=== PATIENT | female | born 1955 | race Caucasian/White ===

== ENCOUNTER 2017-12-21 00:50 | Inpatient (IN) | payer MEDICARE, BC ==
[2017-12-21] MEDS: IPRATROPIUM BROMIDE 0.5 MG/2.5 ML NEBU. NEB (01:13)
[2017-12-21] MEDS: ALBUTEROL SULFATE 2.5 MG/3 ML NEBU. CONT NEB (01:13)
[2017-12-21 01:27] LABS: ADD MAN DIFF? NO
[2017-12-21 01:30] LABS: BASE EXCESS ABG 0 mmol/L (-3-3); HCO3 ABG 24 mmol/L (21-28); PCO2 ABG 38 mmHg (35-46); PH ABG 7.42 (7.35-7.45); PO2 ABG 174 mmHg (65-108); SAT O2 ABG 99 % (92-99)
[2017-12-21 01:31] LABS: BASO # 0.1 x10^3/uL (0.0-0.2); BASO % 2 % (0-3); EOS # 0.3 x10^3/uL (0.0-0.7); EOS % 3 % (0-3); HEMATOCRIT 39.3 % (36.0-47.0); HEMOGLOBIN 13.1 g/dL (12.0-15.5); LYMPH # 2.7 x10^3/uL (1.0-4.8); LYMPH % 30 % (24-48); MEAN CORPUSCULAR HEMOGLOBIN 29 pg (25-35); MEAN CORPUSCULAR HGB CONC 33 g/dL (31-37); MEAN CORPUSCULAR VOLUME 86 fL (79-100); MONO # 1.1 x10^3/uL (0.0-1.1); MONO % 12 % (0-9); NEUT # 4.8 x10^3uL (1.8-7.7); NEUT % 54 % (31-73); PLATELET COUNT 303 x10^3/uL (140-400); RED BLOOD COUNT 4.56 x10^6/uL (3.50-5.40); RED CELL DISTRIBUTION WIDTH 14.2 % (11.5-14.5)
[2017-12-21] MEDS: methylPREDNISolone SOD SUCC PF 125 MG/2 ML VIAL. IV ×2 (01:31→05:48)
[2017-12-21 01:40] LABS: FIO2 ABG 50
[2017-12-21 01:45] LABS: ANION GAP 10 (6-14); BLOOD UREA NITROGEN 32 mg/dL (7-20); BUN/CREATININE RATIO 46 (6-20); CALCIUM 9.2 mg/dL (8.5-10.1); CARBON DIOXIDE 26 mmol/L (21-32); CHLORIDE 102 mmol/L (98-107); CREATININE 0.7 mg/dL (0.6-1.0); GFR 84.5; GLUCOSE 99 mg/dL (70-99); POTASSIUM 4.3 mmol/L (3.5-5.1); SODIUM 138 mmol/L (136-145)
[2017-12-21 01:49] LABS: ALBUMIN 3.7 g/dL (3.4-5.0); ALBUMIN/GLOBULIN RATIO 1.2 (1.0-1.7); ALK PHOS 93 U/L (46-116); ALT (SGPT) 33 U/L (14-59); AST (SGOT) 27 U/L (15-37); TOTAL BILIRUBIN 0.2 mg/dL (0.2-1.0); TOTAL PROTEIN 6.9 g/dL (6.4-8.2)
[2017-12-21 01:51] LABS: LACTIC ACID 0.9 mmol/L (0.4-2.0)
[2017-12-21 01:54] LABS: NT-PRO BNP 63 pg/mL (0-124)
[2017-12-21 01:58] LABS: TROPONINI < 0.017 ng/mL (0.000-0.055)
[2017-12-21] MEDS ORDERED: ONDANSETRON PF 4 MG/2 ML VIAL. IV (02:15)
[2017-12-21 02:58] LABS: INFLUENZA A PATIENT NEGATIVE (NEGATIVE); INFLUENZA B PATIENT NEGATIVE (NEGATIVE); OBC FLU VALID
[2017-12-21] MEDS: IPRATRPIUM/ALBUTEROL 0.5/2.5MG 3 ML NEBU. NEB ×2 (08:22→12:00)
== END 2017-12-21 13:02 | disposition home or self-care (01) | DRG 191 ==
LOC: ER 00:50 → 6 SOUTH 01:30
DX: J44.1 Chronic obstructive pulmonary disease with (acute) exacerbation (principal); J96.10 Chronic respiratory failure, unspecified whether with hypoxia or hypercapnia; Z99.81 Dependence on supplemental oxygen; E03.9 Hypothyroidism, unspecified; Z87.891 Personal history of nicotine dependence
CPT/HCPCS: 36415; 36600; 71045; 80053; 82805; 83605; 83880; 84484; 85025; 87040; 87804; 87804-59; 93005; 94618; 94640; 94644; 94760; J2930; J7613; J7620; J7644

== ENCOUNTER 2018-10-03 06:07 | Emergency (ER) | payer BC, MEDICARE ==
[~2018-10-03] VITALS: Ht 162.6 cm; Wt 65.8 kg
[~2018-10-03 06:07] MED LIST: ALBU2.5V14 NEB; BUDE10.2 IH; FLUO40CA2 PO; LEVO100T5 PO; LEVO25TA55 PO; LEVO500T59 PO; MOME13HF IH; Nicotine TD; OXYC1TAB8 PO; PRED20TA PO; PRED50TA PO; PROAIR HFA8.5 GM IH; TIOT18CA IH; TRAZ-85 PO; WARF2.5T83 PO
--- NOTE | 2018-10-03 06:11 | PHYS DOC ---
Past Medical History Past Medical History: COPD, Other Additional Past Medical Histor: emphysema Past Surgical History: No Surgical History Alcohol Use: None Drug Use: None, Marijuana Adult General HPI HPI Patient is a 63 year old female who presents with dyspnea. Patient is known to have COPD. She uses 3 L of oxygen at home as needed. Today, she became acutely dyspneic. She used her albuterol nebulizers at home but these did not relieve her symptoms so she called 911. The patient has not had a fever or chills. She does describe a mildly worsening cough with sputum production compared to her baseline. No chest pain. No orthopnea or lower extremity edema. Patient states the symptoms are classic for her known COPD Review of Systems Review of Systems Constitutional: Denies fever Eyes: Denies change in visual acuity HENT: Denies nasal congestion Respiratory: as documented above Cardiovascular: No additional information GI: Denies abdominal pain, nausea Musculoskeletal: Denies back pain or joint pain Integument: Denies rash or skin lesions Neurologic: Denies headache All other systems were reviewed and found to be within normal limits, except as documented in this note. Current Medications Current Medications Current Medications Medications (Trade) Dose Ordered Sig/Rebeca Start Time Stop Time Status Last Admin Dose Admin Albuterol Sulfate (Ventolin Neb Soln) 10 mg 1X ONCE 10/03/18 06:30 10/03/18 06:31 DC 10/03/18 06:20 10 MG Albuterol/ Ipratropium (Duoneb) 3 ml 1X ONCE 10/03/18 06:30 10/03/18 06:31 DC 10/03/18 06:20 3 ML Azithromycin (Zithromax) 500 mg 1X ONCE 10/03/18 08:15 10/03/18 08:16 DC 10/03/18 08:26 500 MG Methylprednisolone Sodium Succinate (SOLU-Medrol 125MG VIAL) 125 mg 1X ONCE 10/03/18 06:30 10/03/18 06:31 DC 10/03/18 06:32 125 MG Allergies Allergies Allergies Coded Allergies Type Severity Reaction Last Updated Verified No Known Drug Allergies 09/09/16 No Physical Exam Physical Exam Constitutional: Well developed, well nourished, moderate respiratory distress, non-toxic appearance HENT: Normocephalic, atraumatic, bilateral external ears normal, oropharynx moist Eyes: PERRLA, EOMI, conjunctiva normal Neck: Normal range of motion Cardiovascular:Heart rate regular rhythm, no murmur Lungs & Thorax: prolonged expiratory phase, wheezes and diminished air flow in all goncalves Abdomen: Bowel sounds normal, soft, no tenderness Skin: Warm, dry, no erythema Extremities: No edema Neurologic: Alert and oriented X 3 Psychologic: Affect normal Current Patient Data Vital Signs Vital Signs Date Time Temp Pulse Resp B/P (MAP) Pulse Ox O2 Delivery O2 Flow Rate FiO2 10/03/18 06:41 88 26 113/80 (91) 99 Nasal Cannula 3.0 10/03/18 06:07 97.3 97.3 Lab Values Laboratory Tests Test 10/03/18 06:27 White Blood Count 9.4 x10^3/uL (4.0-11.0) Red Blood Count 4.85 x10^6/uL (3.50-5.40) Hemoglobin 13.6 g/dL (12.0-15.5) Hematocrit 41.0 % (36.0-47.0) Mean Corpuscular Volume 85 fL (79-100) Mean Corpuscular Hemoglobin 28 pg (25-35) Mean Corpuscular Hemoglobin Concent 33 g/dL (31-37) Red Cell Distribution Width 14.2 % (11.5-14.5) Platelet Count 272 x10^3/uL (140-400) Neutrophils (%) (Auto) 58 % (31-73) Lymphocytes (%) (Auto) 29 % (24-48) Monocytes (%) (Auto) 9 % (0-9) Eosinophils (%) (Auto) 3 % (0-3) Basophils (%) (Auto) 1 % (0-3) Neutrophils # (Auto) 5.5 x10^3uL (1.8-7.7) Lymphocytes # (Auto) 2.8 x10^3/uL (1.0-4.8) Monocytes # (Auto) 0.8 x10^3/uL (0.0-1.1) Eosinophils # (Auto) 0.2 x10^3/uL (0.0-0.7) Basophils # (Auto) 0.1 x10^3/uL (0.0-0.2) Sodium Level 137 mmol/L (136-145) Potassium Level 4.1 mmol/L (3.5-5.1) Chloride Level 102 mmol/L (98-107) Carbon Dioxide Level 27 mmol/L (21-32) Anion Gap 8 (6-14) Blood Urea Nitrogen 32 mg/dL (7-20) H Creatinine 0.8 mg/dL (0.6-1.0) Estimated GFR (Cockcroft-Gault) 72.2 Glucose Level 132 mg/dL (70-99) H Calcium Level 9.3 mg/dL (8.5-10.1) Procalcitonin < 0.10 ng/mL (0.00-0.10) Laboratory Tests 10/03/18 06:27 Laboratory Tests 10/03/18 06:27 EKG EKG [] Radiology/Procedures Radiology/Procedures CXR: no acute process Course & Med Decision Making Course & Med Decision Making Pertinent Labs and Imaging studies reviewed. (See chart for details) 06:10: Patient is seen and examined. Significant respiratory distress with increased work of breathing and prolonged expiratory phase. Duoneb followed by hour-long albuterol neb ordered. 07:15: Patient much improved. Sleeping with hour-long neb in progress. Vitals stable. SaO2 97%. Work of breathing resolved. 08:05: Symptoms are completely resolved. The patient has clear lungs. She has no increased work of breathing. Plan is for discharge home. She is placed on prednisone over the next 5 days. She is also placed on azithromycin over the same time. The first dose was given in the ER. Patient is advised to come back to the ER for any new or worsening symptoms. Otherwise, follow up with her primary care doctor. Regine Disclaimer Regine Disclaimer This electronic medical record was generated, in whole or in part, using a voice recognition dictation system. Departure Departure Disposition: HOME, SELF-CARE Condition: GOOD Referrals: JONI GAR (PCP) Scripts Azithromycin (AZITHROMYCIN TABLET) 250 Mg Tablet 250 MG PO DAILY for ANTI-BIOTIC for 4 Days, #4 TAB 0 Refills Prov: SASKIA CASTILLO DO 10/03/18 Prednisone (PREDNISONE) 50 Mg Tablet 1 TAB PO DAILY, #5 TAB Prov: SASKIA CASTILLO DO 10/03/18 SASKIA CASTILLO DO Oct 03, 2018 06:11
[2018-10-03] MEDS ORDERED: IPRATRPIUM/ALBUTEROL 0.5/2.5MG 3 ML NEBU. NEB ONE (06:30)
[2018-10-03] MEDS ORDERED: methylPREDNISolone SOD SUCC PF 125 MG/2 ML VIAL. IV ONE (06:30)
[2018-10-03] MEDS ORDERED: ALBUTEROL SULFATE 2.5 MG/3 ML NEBU. CONT NEB ONE (06:30)
[2018-10-03 06:41] LABS: BASO # 0.1 x10^3/uL (0.0-0.2); BASO % 1 % (0-3); EOS # 0.2 x10^3/uL (0.0-0.7); EOS % 3 % (0-3); HEMOGLOBIN 13.6 g/dL (12.0-15.5); LYMPH # 2.8 x10^3/uL (1.0-4.8); LYMPH % 29 % (24-48); MEAN CORPUSCULAR HEMOGLOBIN 28 pg (25-35); MEAN CORPUSCULAR HGB CONC 33 g/dL (31-37); MEAN CORPUSCULAR VOLUME 85 fL (79-100); MONO # 0.8 x10^3/uL (0.0-1.1); MONO % 9 % (0-9); NEUT # 5.5 x10^3uL (1.8-7.7); NEUT % 58 % (31-73); PLATELET COUNT 272 x10^3/uL (140-400); RED BLOOD COUNT 4.85 x10^6/uL (3.50-5.40); RED CELL DISTRIBUTION WIDTH 14.2 % (11.5-14.5); WHITE BLOOD COUNT 9.4 x10^3/uL (4.0-11.0)
--- NOTE | 2018-10-03 06:48 | RAD ---
Chest radiograph 10/03/2018 6:13 AM INDICATION: Dyspnea, COPD exacerbation COMPARISON: December 21, 2017 TECHNIQUE: Portable upright frontal view of the chest is provided. FINDINGS: The cardiomediastinal silhouette is within normal limits. There are no pleural effusions. There is no pulmonary vascular congestion. There is no pneumothorax. The lungs are clear. No significant osseous abnormality is identified. IMPRESSION: No acute cardiopulmonary process. Electronically signed by: Cheryl Collier MD (10/03/2018 6:45 AM) [facility]
[2018-10-03 06:53] LABS: CALCIUM 9.3 mg/dL (8.5-10.1); CREATININE 0.8 mg/dL (0.6-1.0); GFR 72.2; POTASSIUM 4.1 mmol/L (3.5-5.1)
[2018-10-03] MEDS ORDERED: AZIT250T6 PO (08:07)
[2018-10-03] MEDS ORDERED: PRED50TA PO (08:07)
[2018-10-03 08:11] VITALS: BP 114/69
[2018-10-03] MEDS ORDERED: AZITHROMYCIN 250 MG TABLET. PO ONE (08:15)
== END 2018-10-03 08:20 | disposition home or self-care (01) ==
LOC: ER 06:07
DX: R06.00 Dyspnea, unspecified (principal); R06.2 Wheezing; R05 Cough; J43.9 Emphysema, unspecified
CPT/HCPCS: 36415; 71045; 80048; 84145; 85025; 94644; 96374; 99285; J2930; J7613; J7620; Q0144

== ENCOUNTER 2019-01-06 07:06 | Emergency (ER) | payer MEDICARE, OTHER ==
[~2019-01-06] VITALS: Ht 160 cm; Wt 69.9 kg
[~2019-01-06 07:06] MED LIST changes: +ALBU2.5V8 IH; +AZIT250T6 PO; -PROAIR HFA8.5 GM IH; +TRAZ-118 PO; -TRAZ-85 PO
[2019-01-06] MEDS ORDERED: methylPREDNISolone SOD SUCC PF 125 MG/2 ML VIAL. IV ONE (07:15)
[2019-01-06] MEDS ORDERED: IPRATRPIUM/ALBUTEROL 0.5/2.5MG 3 ML NEBU. NEB ONE ×2 (07:15→09:00)
--- NOTE | 2019-01-06 07:17 | PHYS DOC ---
Past Medical History Past Medical History: COPD, Other Additional Past Medical Histor: emphysema Past Surgical History: No Surgical History Alcohol Use: None Drug Use: Marijuana Adult General Chief Complaint Chief Complaint: SHORTNESS OF BREATH HPI HPI Patient is a 64 year old female who presents to ER today for evaluation of trouble breathing. Patient has history of COPD, was a former smoker, quit smoking about 2 years ago. Patient is on 2 L of oxygen at home as needed. Patient said about 2 weekS ago she was diagnosed with bronchitis, just finished a five-day course of Z-Len and 4 DAYS of prednisone ABOUT weeks ago. She denies any fever, no chest pain. Review of Systems Review of Systems Constitutional: Denies fever or chills [] Eyes: Denies change in visual acuity, redness, or eye pain [] HENT: Denies nasal congestion or sore throat [] Respiratory: POSITIVE FOR cough AND shortness of breath [] Cardiovascular: No additional information not addressed in HPI [] GI: Denies abdominal pain, nausea, vomiting, bloody stools or diarrhea [] : Denies dysuria or hematuria [] Musculoskeletal: Denies back pain or joint pain [] Integument: Denies rash or skin lesions [] Neurologic: Denies headache, focal weakness or sensory changes [] Endocrine: Denies polyuria or polydipsia [] All other systems were reviewed and found to be within normal limits, except as documented in this note. Current Medications Current Medications Current Medications Medications (Trade) Dose Ordered Sig/Rebeca Start Time Stop Time Status Last Admin Dose Admin Albuterol/ Ipratropium (Duoneb) 3 ml 1X ONCE 01/06/19 09:00 01/06/19 09:01 DC 01/06/19 09:09 3 ML Methylprednisolone Sodium Succinate (SOLU-Medrol 125MG VIAL) 125 mg 1X ONCE 01/06/19 07:15 01/06/19 07:21 DC 01/06/19 07:34 125 MG Ondansetron HCl (Zofran) 4 mg 1X ONCE 01/06/19 07:30 01/06/19 07:31 DC 01/06/19 07:34 4 MG Allergies Allergies Allergies Coded Allergies Type Severity Reaction Last Updated Verified No Known Drug Allergies 09/09/16 No Physical Exam Physical Exam Constitutional: Well developed, well nourished, no acute distress, non-toxic appearance. [] HENT: Normocephalic, atraumatic, bilateral external ears normal, oropharynx moist, no oral exudates, nose normal. [] Eyes: PERRLA, EOMI, conjunctiva normal, no discharge. [] Neck: Normal range of motion, no tenderness, supple, no stridor. [] Cardiovascular:Heart rate regular rhythm, no murmur [] Lungs & Thorax: DIFFUSE EXPIRATORY AND INSPIRATORY WHEEZING IN ALL LUNG GOULD, DECREASED AIR MOVEMENT. Abdomen: Bowel sounds normal, soft, no tenderness, no masses, no pulsatile masses. [] Skin: Warm, dry, no erythema, no rash. [] Back: No tenderness, no CVA tenderness. [] Extremities: No tenderness, no cyanosis, no clubbing, ROM intact, no edema. [] Neurologic: Alert and oriented X 3, normal motor function, normal sensory function, no focal deficits noted. [] Psychologic: Affect normal, judgement normal, mood normal. [] Current Patient Data Vital Signs Vital Signs Date Time Temp Pulse Resp B/P (MAP) Pulse Ox O2 Delivery O2 Flow Rate FiO2 01/06/19 09:09 98 Nasal Cannula 2.0 01/06/19 07:43 97.6 115 26 137/78 (97) 97.6 Lab Values Laboratory Tests Test 01/06/19 07:15 White Blood Count 9.9 x10^3/uL (4.0-11.0) Red Blood Count 4.82 x10^6/uL (3.50-5.40) Hemoglobin 13.4 g/dL (12.0-15.5) Hematocrit 40.7 % (36.0-47.0) Mean Corpuscular Volume 85 fL (79-100) Mean Corpuscular Hemoglobin 28 pg (25-35) Mean Corpuscular Hemoglobin Concent 33 g/dL (31-37) Red Cell Distribution Width 15.3 % (11.5-14.5) H Platelet Count 295 x10^3/uL (140-400) Neutrophils (%) (Auto) 65 % (31-73) Lymphocytes (%) (Auto) 23 % (24-48) L Monocytes (%) (Auto) 10 % (0-9) H Eosinophils (%) (Auto) 1 % (0-3) Basophils (%) (Auto) 1 % (0-3) Neutrophils # (Auto) 6.5 x10^3uL (1.8-7.7) Lymphocytes # (Auto) 2.2 x10^3/uL (1.0-4.8) Monocytes # (Auto) 1.0 x10^3/uL (0.0-1.1) Eosinophils # (Auto) 0.1 x10^3/uL (0.0-0.7) Basophils # (Auto) 0.1 x10^3/uL (0.0-0.2) Sodium Level 142 mmol/L (136-145) Potassium Level 4.0 mmol/L (3.5-5.1) Chloride Level 106 mmol/L (98-107) Carbon Dioxide Level 27 mmol/L (21-32) Anion Gap 9 (6-14) Blood Urea Nitrogen 19 mg/dL (7-20) Creatinine 0.7 mg/dL (0.6-1.0) Estimated GFR (Cockcroft-Gault) 84.0 BUN/Creatinine Ratio 27 (6-20) H Glucose Level 107 mg/dL (70-99) H Calcium Level 9.3 mg/dL (8.5-10.1) Total Bilirubin 0.4 mg/dL (0.2-1.0) Aspartate Amino Transferase (AST) 26 U/L (15-37) Alanine Aminotransferase (ALT) 35 U/L (14-59) Alkaline Phosphatase 95 U/L (46-116) Creatine Kinase 119 U/L (26-192) Creatine Kinase MB (Mass) 3.3 ng/mL (0.0-3.6) Creatine Kinase MB Relative Index 2.8 % (0-4) Troponin I Quantitative < 0.017 ng/mL (0.000-0.055) [id number]-Type Natriuretic Peptide 99 pg/mL (0-124) Total Protein 7.4 g/dL (6.4-8.2) Albumin 3.1 g/dL (3.4-5.0) L Albumin/Globulin Ratio 0.7 (1.0-1.7) L Laboratory Tests 01/06/19 07:15 Laboratory Tests 01/06/19 07:15 EKG EKG EKG was read by this physician at 0738, rate of 98 bpm, sinus rhythm, no STEMI. Radiology/Procedures Radiology/Procedures [][facility] [address] [place] [address] IMAGING REPORT Signed PATIENT: SERVANDO PATEL ACCOUNT: [id number] : 1955 LOCATION: ER AGE: 64 SEX: F EXAM STATUS: REG ER ORD. PHYSICIAN: ABHIJEET MUÑOZ DO REASON: SOA PROCEDURE: PORTABLE CHEST 1V PORTABLE CHEST 1V Clinical indications: Shortness of air, PRODUCTIVE COUGH COMPARISON: October 03, 2018. Findings: Calcified granuloma the right lung base is again evident. No acute lung infiltrate or pleural effusion or pulmonary edema or lung mass or pneumothorax is seen. The heart size, pulmonary vasculature, mediastinum and both stephany are unremarkable. Impression: No acute radiographic abnormality is seen. Electronically signed by: Albino Rodgers MD (01/06/2019 7:40 AM) [facility] DICTATED and SIGNED BY: ALBINO RODGERS MD DATE: 01/06/19 0739 Course & Med Decision Making Course & Med Decision Making Pertinent Labs and Imaging studies reviewed. (See chart for details) Patient was given nebulizer treatment in the ER. She felt much better, would like to go home. There is no infiltration on chest xray. Patient has oxygen and neb treatment at home. She will follow up with her doctor this week for reevaluation. Dragon Disclaimer Dragon Disclaimer This electronic medical record was generated, in whole or in part, using a voice recognition dictation system. Departure Departure Impression: Primary Impression: COPD exacerbation Disposition: 01 HOME, SELF-CARE Condition: IMPROVED Referrals: JONI GAR (PCP) follow up with your doctor this week. Patient Instructions: Chronic Obstructive Pulmonary Disease Exacerbation Scripts Prednisone (PREDNISONE) 20 Mg Tablet 40 MG PO DAILY for 5 Days, #10 TAB Prov: ABHIJEET MUÑOZ DO 01/06/19 ABHIJEET MUÑOZ DO Jan 06, 2019 07:17
[2019-01-06] MEDS ORDERED: ONDANSETRON PF 4 MG/2 ML VIAL. IV ONE (07:30)
[2019-01-06 07:43] VITALS: BP 137/78
[2019-01-06 07:43] LABS: CALCIUM 9.3 mg/dL (8.5-10.1); CREATININE 0.7 mg/dL (0.6-1.0)
--- NOTE | 2019-01-06 07:43 | RAD ---
PORTABLE CHEST 1V Clinical indications: Shortness of air, PRODUCTIVE COUGH COMPARISON: October 03, 2018. Findings: Calcified granuloma the right lung base is again evident. No acute lung infiltrate or pleural effusion or pulmonary edema or lung mass or pneumothorax is seen. The heart size, pulmonary vasculature, mediastinum and both stephany are unremarkable. Impression: No acute radiographic abnormality is seen. Electronically signed by: Pedro Rodgers MD (01/06/2019 7:40 AM) [facility]
[2019-01-06 07:49] LABS: ALBUMIN 3.1 g/dL (3.4-5.0); ALBUMIN/GLOBULIN RATIO 0.7 (1.0-1.7); BASO # 0.1 x10^3/uL (0.0-0.2); BASO % 1 % (0-3); EOS # 0.1 x10^3/uL (0.0-0.7); EOS % 1 % (0-3); HEMATOCRIT 40.7 % (36.0-47.0); HEMOGLOBIN 13.4 g/dL (12.0-15.5); LYMPH # 2.2 x10^3/uL (1.0-4.8); LYMPH % 23 % (24-48); MEAN CORPUSCULAR HEMOGLOBIN 28 pg (25-35); MEAN CORPUSCULAR HGB CONC 33 g/dL (31-37); MEAN CORPUSCULAR VOLUME 85 fL (79-100); MONO % 10 % (0-9); NEUT # 6.5 x10^3uL (1.8-7.7); NEUT % 65 % (31-73); PLATELET COUNT 295 x10^3/uL (140-400); RED BLOOD COUNT 4.82 x10^6/uL (3.50-5.40); RED CELL DISTRIBUTION WIDTH 15.3 % (11.5-14.5); TOTAL BILIRUBIN 0.4 mg/dL (0.2-1.0); TOTAL PROTEIN 7.4 g/dL (6.4-8.2); WHITE BLOOD COUNT 9.9 x10^3/uL (4.0-11.0)
[2019-01-06] MEDS ORDERED: PRED20TA PO (09:36)
[2019-01-06 10:04] LABS: BILIRUBIN,URINE NEGATIVE (NEG); CLARITY,URINE CLEAR; COLOR,URINE YELLOW; NITRITE,URINE NEGATIVE (NEG); PH,URINE 5.5; PROTEIN,URINE NEGATIVE (NEG-TRACE); UROBILINOGEN,URINE 0.2 mg/dL (0.2 mg/dL)
[2019-01-06 10:28] LABS: SQUAMOUS EPITHELIAL CELL,UR OCC /LPF
[2019-01-06 10:29] LABS: BACTERIA,URINE 0 /HPF (0-FEW); RBC,URINE 0 /HPF (0-2); WBC,URINE OCC /HPF (0-4)
--- NOTE | 2019-01-06 16:21 | EKG ---
[facility] [address] [place] [address] Test Date: 2019-01-06 Test Time: 07:37:45 Pat Name: SERVANDO PATEL Department: Room: Gender: F [employer] Property: : 1955 Requested By: ABHIJEET MUÑOZ Order Number: [id number] Reading MD: Houston Landry Measurements Intervals [place] Rate: 98 P: 90 MI: 136 QRS: 52 QRSD: 80 T: 87 QT: 332 QTc: 426 Interpretive Statements SINUS RHYTHM Electronically Signed On 01-14-2019 10:44:26 [employer] by Houston Landry
[2019-01-22] MEDS ORDERED: DOXY100T PO (10:32)
[2019-01-22] MEDS ORDERED: PRED50TA PO (10:32)
[2019-01-22] MEDS ORDERED: SERT25TA4 PO (12:32)
== END 2019-01-06 10:29 | disposition home or self-care (01) ==
LOC: ER 07:06
DX: J44.1 Chronic obstructive pulmonary disease with (acute) exacerbation (principal); Z87.891 Personal history of nicotine dependence
CPT/HCPCS: 36415; 71045; 80053; 81001; 82550; 82553; 83880; 84484; 85025; 93005; 94640; 96374; 96375; 99284; J2405; J2930; J7620

== ENCOUNTER 2019-01-19 07:14 | Emergency (ER) | payer MEDICARE, OTHER ==
[~2019-01-19] VITALS: Ht 162.6 cm; Wt 69.9 kg
[2019-01-19] MEDS ORDERED: fentaNYL PF VIAL 100 MCG/2 ML VIAL IV ONE (08:15)
[2019-01-19] MEDS ORDERED: IPRATRPIUM/ALBUTEROL 0.5/2.5MG 3 ML NEBU. NEB ONE (08:15)
[2019-01-19] MEDS ORDERED: ONDANSETRON PF 4 MG/2 ML VIAL. IV ONE (08:15)
[2019-01-19] MEDS ORDERED: methylPREDNISolone SOD SUCC PF 125 MG/2 ML VIAL. IV ONE (08:15)
[2019-01-19] MEDS ORDERED: IV NORMAL SALINE 1000ML BAG 1,000 ML IV ONE (08:15)
--- NOTE | 2019-01-19 08:32 | PHYS DOC ---
Past Medical History Past Medical History: COPD, Hypothyroid Additional Past Medical Histor: emphysema Past Surgical History: No Surgical History Alcohol Use: None Drug Use: None Adult General Chief Complaint Chief Complaint: NAUSEA/VOMITING/DIARRHA HPI HPI 64-year-old female presents to ER for complaints of cold-like symptoms and GI issues. Patient reports on she started having cold-like symptoms with productive cough and then developed abdominal pain with N/V/D. patient reports today she has had 6-7 episodes of vomiting and approximately 5 episodes of diarrhea denying any blood in emesis or stools. She denies fever, chest pain, or shortness of air. Patient reports she is a former smoker and has history of COPD. She reports she has had productive cough with yellowish phlegm. Patient states she has O2 at home which she uses as needed denies increased use in the past several days. Patient reports she has diffuse abdominal pain denies any radiation into lower back. She denies any urinary symptoms. Since has been also has cold-like illness. Review of Systems Review of Systems Constitutional: Denies fever or chills. Reports generalized fatigue Eyes: Denies change in visual acuity, redness, or eye pain [] HENT: Denies nasal congestion or sore throat [] Respiratory: Denies shortness of breath. Reports prod. cough Cardiovascular: Denies CP GI: Denies bloody stools. Reports diffuse abd pain with N/V/D : Denies dysuria or hematuria [] Musculoskeletal: Denies back/neck pain or joint pain [] Integument: Denies rash, swelling or skin lesions [] Neurologic: Denies headache, focal weakness or sensory changes [] Endocrine: Denies polyuria or polydipsia [] All other systems were reviewed and found to be within normal limits, except as documented in this note. Current Medications Current Medications Current Medications Medications (Trade) Dose Ordered Sig/Rebeca Start Time Stop Time Status Last Admin Dose Admin Albuterol/ Ipratropium (Duoneb) 3 ml 1X ONCE 01/19/19 08:15 01/19/19 08:16 DC 01/19/19 08:28 3 ML Fentanyl Citrate (Fentanyl 2ml Vial) 25 mcg 1X ONCE 01/19/19 08:15 01/19/19 08:16 DC 01/19/19 08:56 25 MCG Methylprednisolone Sodium Succinate (SOLU-Medrol 125MG VIAL) 125 mg 1X ONCE 01/19/19 08:15 01/19/19 08:18 DC 01/19/19 08:55 125 MG Ondansetron HCl (Zofran) 4 mg 1X ONCE 01/19/19 08:15 01/19/19 08:16 DC 01/19/19 08:56 4 MG Sodium Chloride 1,000 ml @ 1,000 mls/hr 1X ONCE 01/19/19 08:15 01/19/19 09:14 DC 01/19/19 08:55 1,000 MLS/HR Allergies Allergies Allergies Coded Allergies Type Severity Reaction Last Updated Verified No Known Drug Allergies 09/09/16 No Physical Exam Physical Exam Constitutional: Well developed, well nourished, no acute distress, non-toxic appearance. [] HENT: Normocephalic, atraumatic, bilateral external ears normal, oropharynx moist, no oral exudates, nose normal. [] Eyes: Pupils equal, conjunctiva normal, no discharge. [] Neck: Normal range of motion, no tenderness, supple, no stridor. [] Cardiovascular: Heart rate regular rhythm, no murmur [] Lungs & Thorax: Resp. equal/nonlabored. Coarse bilat. upper lung goncalves- decreased air movement in bases. Abdomen: Bowel sounds normal, soft- no distention or rigidity, diffuse tenderness in all abd- no focal area, no rebound tenderness, no masses, no pulsatile masses. [] Skin: Warm, dry, no erythema, no rash. [] Back: No tenderness, no CVA tenderness. [] Extremities: No tenderness, no cyanosis, no clubbing, ROM intact, no edema. [] Neurologic: Alert and oriented X 3, normal motor function, normal sensory function, no focal deficits noted. [] Psychologic: Affect normal, judgement normal, mood normal. [] Current Patient Data Vital Signs Vital Signs Date Time Temp Pulse Resp B/P (MAP) Pulse Ox O2 Delivery O2 Flow Rate FiO2 01/19/19 08:29 Room Air 01/19/19 07:29 98.1 134 22 114/78 (90) 98 98.1 Lab Values Laboratory Tests Test 01/19/19 08:15 01/19/19 08:30 White Blood Count 5.6 x10^3/uL (4.0-11.0) Red Blood Count 5.25 x10^6/uL (3.50-5.40) Hemoglobin 14.5 g/dL (12.0-15.5) Hematocrit 44.0 % (36.0-47.0) Mean Corpuscular Volume 84 fL (79-100) Mean Corpuscular Hemoglobin 28 pg (25-35) Mean Corpuscular Hemoglobin Concent 33 g/dL (31-37) Red Cell Distribution Width 14.8 % (11.5-14.5) H Platelet Count 250 x10^3/uL (140-400) Neutrophils (%) (Auto) 59 % (31-73) Lymphocytes (%) (Auto) 22 % (24-48) L Monocytes (%) (Auto) 18 % (0-9) H Eosinophils (%) (Auto) 0 % (0-3) Basophils (%) (Auto) 1 % (0-3) Neutrophils # (Auto) 3.3 x10^3uL (1.8-7.7) Lymphocytes # (Auto) 1.2 x10^3/uL (1.0-4.8) Monocytes # (Auto) 1.0 x10^3/uL (0.0-1.1) Eosinophils # (Auto) 0.0 x10^3/uL (0.0-0.7) Basophils # (Auto) 0.0 x10^3/uL (0.0-0.2) Segmented Neutrophils % 54 % (35-66) Band Neutrophils % 5 % (0-9) Lymphocytes % 26 % (24-48) Monocytes % 14 % (0-10) H Basophils % 1 % (0-3) Platelet Estimate Adequate (ADEQUATE) Sodium Level 139 mmol/L (136-145) Potassium Level 3.6 mmol/L (3.5-5.1) Chloride Level 101 mmol/L (98-107) Carbon Dioxide Level 23 mmol/L (21-32) Anion Gap 15 (6-14) H Blood Urea Nitrogen 29 mg/dL (7-20) H Creatinine 1.0 mg/dL (0.6-1.0) Estimated GFR (Cockcroft-Gault) 55.6 BUN/Creatinine Ratio 29 (6-20) H Glucose Level 122 mg/dL (70-99) H Calcium Level 8.5 mg/dL (8.5-10.1) Magnesium Level 1.8 mg/dL (1.8-2.4) Total Bilirubin 0.3 mg/dL (0.2-1.0) Aspartate Amino Transferase (AST) 28 U/L (15-37) Alanine Aminotransferase (ALT) 33 U/L (14-59) Alkaline Phosphatase 86 U/L (46-116) Troponin I Quantitative < 0.017 ng/mL (0.000-0.055) Total Protein 6.9 g/dL (6.4-8.2) Albumin 3.3 g/dL (3.4-5.0) L Albumin/Globulin Ratio 0.9 (1.0-1.7) L Lipase 214 U/L (73-393) Urine Collection Type Unknown Urine Color Straw Urine Clarity Hazy Urine pH 6.0 Urine Specific [place] >=1.030 Urine Protein 100 mg/dL (NEG-TRACE) Urine Glucose (UA) 100 mg/dL (NEG) Urine Ketones (Stick) Trace mg/dL (NEG) Urine Blood Small (NEG) Urine Nitrite Negative (NEG) Urine Bilirubin Small (NEG) Urine Urobilinogen Dipstick 0.2 mg/dL (0.2 mg/dL) Urine Leukocyte Esterase Negative (NEG) Laboratory Tests 01/19/19 08:15 Laboratory Tests 01/19/19 08:15 EKG EKG EKG obtained 01/19/19 at [address] Mueller Sinus rhythm Rate 95 No STEMI Radiology/Procedures Radiology/Procedures PROCEDURE: CHEST PA & LATERAL CHEST PA LATERAL History: N,V,D X4 DAYS. HX OF COPD Comparison: 01/06/2019 portable chest x-ray exam. Findings: The cardiomediastinal silhouette is normal. Pulmonary vasculature is normal. The lungs are clear. No pleural effusion or pneumothorax is seen. There is no acute bone abnormality. Calcified granuloma involves the right lung base. Pulmonary hyperinflation is evident. IMPRESSION: No acute cardiopulmonary process. COPD. Electronically signed by: Kushal Siddiqi MD (01/19/2019 8:57 AM) [facility] DICTATED and SIGNED BY: KUSHAL SIDDIQI MD DATE: 01/19/19 0857 Course & Med Decision Making Course & Med Decision Making Pertinent Labs and Imaging studies reviewed. (See chart for details) 0950: She was evaluated in the ER for cold-like symptoms. Patient reports she had GI issues as well with vomiting and diarrhea episodes. While in ER patient has had no reported episodes of vomiting or diarrhea. At this time patient reports her symptoms have improved following treatments received- stating her abd pain and nausea had subsided. Patient was given dose of IV Solu-Medrol for probable COPD exacerbation and DuoNeb treatment. Patient on reexam does have increased air movement throughout all lung goncalves w/ coarse lung sound improving in bilat upper goncalves. BP 114/75 HR 90 RR 18 O2 sat 95% RA. Discussed test results with pt and her husb. EKG with no acute ST elevation/STEMI and troponin <0.017; WBCs NL at 5.6 LFTs/lipase NL; UA neg. for infection- 100 protein/glucose w/trace of ketones; chest xray neg. for acute finding. Patient reports she has been recently having chest ran for borderline diabetes- blood glucose was 122. Advised patient to have repeat UA with primary care physician for reevaluation on protein and ketones. Discussed plans for home discharge with improved symptoms. Will provide patient with prescription for prednisone to start tomorrow for 4 additional days and doxycycline. Patient to follow-up with primary care physician in 2-3 days for reevaluation sooner with concerns. Pt advised to increase fluid intake and slowly advance diet as tolerated. Discharge instructions were discussed and education provided on s&s to return to ER for. Provide patient with prescriptions for Zofran ODT and Bentyl. Patient is comfortable with home discharge plan as discussed. Patient's was at bedside during discussion. Dragon Disclaimer Dragon Disclaimer This electronic medical record was generated, in whole or in part, using a voice recognition dictation system. Departure Departure Impression: Primary Impression: COPD exacerbation Additional Impression: Vomiting and diarrhea Disposition: 01 HOME, SELF-CARE Condition: STABLE Referrals: JONI GAR (PCP) Patient Instructions: Bronchitis, Chronic Obstructive Pulmonary Disease Exacerbation, Diarrhea, Nausea and Vomiting Additional Instructions: Drink plenty of fluids and slowly advance diet as tolerated. Tylenol and/or ibuprofen as needed for pain and fever control as directed on container. Follow-up with your primary care physician in 2-3 days for reevaluation sooner with any concerns. Scripts Dicyclomine Hcl (DICYCLOMINE HCL) 10 Mg Capsule 1 CAP PO PRN Q6HRS PRN for PAIN, #8 CAP 0 Refills Prov: YOSELIN VERDUZCO APRN 01/19/19 Ondansetron (ONDANSETRON ODT) 4 Mg Tab.rapdis 1 TAB PO PRN Q6-8HRS PRN for NAUSEA, #8 TAB 0 Refills Prov: YOSELIN VERDUZCO APRN 01/19/19 Prednisone (PREDNISONE) 20 Mg Tablet 2 TAB PO DAILY, #8 TAB 0 Refills Start on 01/20/19 Prov: YOSELIN VERDUZCO APRN 01/19/19 Doxycycline Monohydrate (DOXYCYCLINE MONOHYDRATE) 100 Mg Capsule 1 CAP PO BID, #14 CAP Prov: YOSELIN VERDUZCO APRN 01/19/19 Problem Qualifiers YOSELIN VERDUZCO APRN Jan 19, 2019 08:32
[2019-01-19 08:37] LABS: BASO % 1 % (0-3); EOS % 0 % (0-3); HEMOGLOBIN 14.5 g/dL (12.0-15.5); LYMPH # 1.2 x10^3/uL (1.0-4.8); LYMPH % 22 % (24-48); MEAN CORPUSCULAR HEMOGLOBIN 28 pg (25-35); MEAN CORPUSCULAR HGB CONC 33 g/dL (31-37); MEAN CORPUSCULAR VOLUME 84 fL (79-100); MONO % 18 % (0-9); NEUT # 3.3 x10^3uL (1.8-7.7); NEUT % 59 % (31-73); PLATELET COUNT 250 x10^3/uL (140-400); RED BLOOD COUNT 5.25 x10^6/uL (3.50-5.40); RED CELL DISTRIBUTION WIDTH 14.8 % (11.5-14.5); WHITE BLOOD COUNT 5.6 x10^3/uL (4.0-11.0)
[2019-01-19 08:47] LABS: BILIRUBIN,URINE SMALL (NEG); CLARITY,URINE HAZY; COLOR,URINE STRAW
[2019-01-19 08:48] LABS: CALCIUM 8.5 mg/dL (8.5-10.1); GFR 55.6; POTASSIUM 3.6 mmol/L (3.5-5.1)
[2019-01-19 08:48] LABS: NITRITE,URINE NEGATIVE (NEG); PROTEIN,URINE 100 mg/dL (NEG-TRACE); UROBILINOGEN,URINE 0.2 mg/dL (0.2 mg/dL)
[2019-01-19 08:55] LABS: ALBUMIN 3.3 g/dL (3.4-5.0); ALBUMIN/GLOBULIN RATIO 0.9 (1.0-1.7); MAGNESIUM 1.8 mg/dL (1.8-2.4); TOTAL BILIRUBIN 0.3 mg/dL (0.2-1.0); TOTAL PROTEIN 6.9 g/dL (6.4-8.2)
--- NOTE | 2019-01-19 09:00 | RAD ---
CHEST PA LATERAL History: N,V,D X4 DAYS. HX OF COPD Comparison: 01/06/2019 portable chest x-ray exam. Findings: The cardiomediastinal silhouette is normal. Pulmonary vasculature is normal. The lungs are clear. No pleural effusion or pneumothorax is seen. There is no acute bone abnormality. Calcified granuloma involves the right lung base. Pulmonary hyperinflation is evident. IMPRESSION: No acute cardiopulmonary process. COPD. Electronically signed by: Kushal Hill MD (01/19/2019 8:57 AM) [facility]
[2019-01-19 10:00] VITALS: BP 107/74
[2019-01-19 10:01] LABS: % BANDS 5 % (0-9); % BASOS 1 % (0-3); % LYMPHS 26 % (24-48); % MONOS 14 % (0-10); % SEGS 54 % (35-66)
[2019-01-19 10:02] LABS: PLT ESTIMATE ADEQUATE (ADEQUATE)
[2019-01-19] MEDS ORDERED: DICY10CA3 PO (10:03)
[2019-01-19] MEDS ORDERED: DOXY100C14 PO (10:03)
[2019-01-19] MEDS ORDERED: PRED20TA PO (10:03)
[2019-01-19] MEDS ORDERED: ONDA4TAB12 PO (10:03)
--- NOTE | 2019-01-20 07:06 | EKG ---
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
[2019-01-20] MEDS ORDERED: BUDE0.25 NEB (20:16)
[2019-01-20] MEDS ORDERED: ARFO15VI NEB (20:16)
[2019-01-22] MEDS ORDERED: PRED50TA PO (10:32)
[2019-01-22] MEDS ORDERED: DOXY100T PO (10:32)
[2019-01-22] MEDS ORDERED: SERT25TA4 PO (12:32)
--- NOTE | 2019-01-23 07:58 | NUR ---
Late entry made to Medical Record. IV Stop time transcribed from eMAR to IV spreadsheet
== END 2019-01-19 10:25 | disposition home or self-care (01) ==
LOC: ER 07:14
DX: J44.1 Chronic obstructive pulmonary disease with (acute) exacerbation (principal); R11.2 Nausea with vomiting, unspecified; R19.7 Diarrhea, unspecified; E03.9 Hypothyroidism, unspecified; Z87.891 Personal history of nicotine dependence
CPT/HCPCS: 99284; J2405; J2930; J3010; J7030; J7620; 36415; 71046; 80053; 81003; 83690; 83735; 84484; 85007; 85025; 93005; 94640; 96361; 96374; 96375

== ENCOUNTER 2019-01-20 16:08 | Inpatient (IN) | payer MEDICARE, OTHER ==
[~2019-01-20] VITALS: Ht 172.7 cm; Wt 71.9 kg
[~2019-01-20 16:08] MED LIST changes: +DICY10CA3 PO; +DOXY100C14 PO; +ONDA4TAB12 PO
[2019-01-20 16:41] LABS: BASO % 0 % (0-3); EOS % 0 % (0-3); HEMATOCRIT 41.2 % (36.0-47.0); HEMOGLOBIN 13.5 g/dL (12.0-15.5); LYMPH % 13 % (24-48); MEAN CORPUSCULAR HEMOGLOBIN 28 pg (25-35); MEAN CORPUSCULAR HGB CONC 33 g/dL (31-37); MEAN CORPUSCULAR VOLUME 85 fL (79-100); MONO # 0.9 x10^3/uL (0.0-1.1); MONO % 12 % (0-9); NEUT # 5.7 x10^3uL (1.8-7.7); NEUT % 75 % (31-73); PLATELET COUNT 288 x10^3/uL (140-400); RED BLOOD COUNT 4.86 x10^6/uL (3.50-5.40); RED CELL DISTRIBUTION WIDTH 15.2 % (11.5-14.5); WHITE BLOOD COUNT 7.6 x10^3/uL (4.0-11.0)
[2019-01-20] MEDS ORDERED: IPRATRPIUM/ALBUTEROL 0.5/2.5MG 3 ML NEBU. NEB ONE (16:45)
[2019-01-20] MEDS ORDERED: methylPREDNISolone SOD SUCC PF 125 MG/2 ML VIAL. IV ONE (16:45)
[2019-01-20 16:56] LABS: GFR 55.6; POTASSIUM 4.2 mmol/L (3.5-5.1)
[2019-01-20 16:59] LABS: BASE EXCESS COOX -1 mmol/L (-3-3); HCO3 COOX 23 mmol/L (21-28); METHEMOGLOBIN 0.3 % (0.0-1.9); OXYHEMOGLOBIN 96.4 %; PCO2 COOX 38 mmHg (35-46); PO2 COOX 97 mmHg (65-108); SAT O2 COOX 97 % (92-99)
[2019-01-20] MEDS ORDERED: ALBUTEROL SULFATE 2.5 MG/3 ML NEBU. CONT NEB ONE (17:00)
[2019-01-20 17:01] LABS: ALBUMIN 3.4 g/dL (3.4-5.0); ALBUMIN/GLOBULIN RATIO 0.8 (1.0-1.7); MAGNESIUM 1.8 mg/dL (1.8-2.4); TOTAL BILIRUBIN 0.2 mg/dL (0.2-1.0); TOTAL PROTEIN 7.5 g/dL (6.4-8.2)
--- NOTE | 2019-01-20 17:30 | NUR ---
The patient, SERVANDO PATEL, 64 y/o, F admitted by DAMARIS GARCIA MD, was given written information regarding hospital policies, unit procedures and contact persons. Valuables were checked and left with patient.
--- NOTE | 2019-01-20 17:38 | RAD ---
EXAM: Chest, single view. HISTORY: Shortness of breath. COMPARISON: 01/19/2019 FINDINGS: A frontal view of the chest is obtained. There is no infiltrate, pleural effusion or pneumothorax. The heart is normal in size. There is a calcified granuloma within the right lower lobe. There is emphysema. IMPRESSION: Emphysema. No acute pulmonary finding. Electronically signed by: Marlena Dong MD (01/20/2019 5:35 PM) [facility]
--- NOTE | 2019-01-20 17:59 | PHYS DOC ---
Past Medical History Past Medical History: COPD, Hypothyroid Additional Past Medical Histor: emphysema Past Surgical History: No Surgical History Alcohol Use: None Drug Use: None Adult General Chief Complaint Chief Complaint: SHORTNESS OF BREATH HPI HPI Patient is a 64 year old female with history of stage IV emphysema, COPD who presents with shortness of breath that began a week ago. Patient denies any fever. Patient states she was seen in the ED yesterday for the same complaints, was given a breathing treatment and sent home. She states symptoms have continued. She is on oxygen 2 L at home chronically. Review of Systems Review of Systems Constitutional: Denies fever or chills [] Eyes: Denies change in visual acuity, redness, or eye pain [] HENT: Denies nasal congestion or sore throat [] Respiratory: Reports cough and shortness of breath Cardiovascular: No additional information not addressed in HPI [] GI: Denies abdominal pain, nausea, vomiting, bloody stools or diarrhea [] : Denies dysuria or hematuria [] Musculoskeletal: Denies back pain or joint pain [] Integument: Denies rash or skin lesions [] Neurologic: Denies headache, focal weakness or sensory changes [] All other systems were reviewed and found to be within normal limits, except as documented in this note. Current Medications Current Medications Current Medications Medications (Trade) Dose Ordered Sig/[facility] Start Time Stop Time Status Last Admin Dose Admin Albuterol Sulfate (Ventolin Neb Soln) 10 mg 1X ONCE 01/20/19 17:00 01/20/19 17:01 DC 01/20/19 17:04 10 MG Albuterol/ Ipratropium (Duoneb) 3 ml 1X ONCE 01/20/19 16:45 01/20/19 16:46 DC 01/20/19 16:37 3 ML Methylprednisolone Sodium Succinate (SOLU-Medrol 125MG VIAL) 125 mg 1X ONCE 01/20/19 16:45 01/20/19 16:46 DC 01/20/19 16:45 125 MG Allergies Allergies Allergies Coded Allergies Type Severity Reaction Last Updated Verified No Known Drug Allergies 09/09/16 No Physical Exam Physical Exam Constitutional: Well developed, well nourished, no acute distress, non-toxic appearance. [] HENT: Normocephalic, atraumatic, bilateral external ears normal, oropharynx moist, no oral exudates, nose normal. [] Eyes: PERRLA, EOMI, conjunctiva normal, no discharge. [] Neck: Normal range of motion, no tenderness, supple, no stridor. [] Cardiovascular:Heart rate regular rhythm, no murmur [] Lungs & Thorax: Patient is short of breath on arrival to the ED. She is wheezing throughout especially on posterior lung bases. Abdomen: Bowel sounds normal, soft, no tenderness, no masses, no pulsatile masses. [] Skin: Warm, dry, no erythema, no rash. [] Back: No tenderness, no CVA tenderness. [] Extremities: No tenderness, no cyanosis, no clubbing, ROM intact, no edema. [] Neurologic: Alert and oriented X 3, normal motor function, normal sensory function, no focal deficits noted. [] Psychologic: Affect normal, judgement normal, mood normal. [] Current Patient Data Vital Signs Vital Signs Date Time Temp Pulse Resp B/P (MAP) Pulse Ox O2 Delivery O2 Flow Rate FiO2 01/20/19 17:08 Nasal Cannula 2.5 01/20/19 16:55 98.2 125 21 122/81 (95) 95 98.2 Lab Values Laboratory Tests Test 01/20/19 16:25 01/20/19 16:33 White Blood Count 7.6 x10^3/uL (4.0-11.0) Red Blood Count 4.86 x10^6/uL (3.50-5.40) Hemoglobin 13.5 g/dL (12.0-15.5) Hematocrit 41.2 % (36.0-47.0) Mean Corpuscular Volume 85 fL (79-100) Mean Corpuscular Hemoglobin 28 pg (25-35) Mean Corpuscular Hemoglobin Concent 33 g/dL (31-37) Red Cell Distribution Width 15.2 % (11.5-14.5) H Platelet Count 288 x10^3/uL (140-400) Neutrophils (%) (Auto) 75 % (31-73) H Lymphocytes (%) (Auto) 13 % (24-48) L Monocytes (%) (Auto) 12 % (0-9) H Eosinophils (%) (Auto) 0 % (0-3) Basophils (%) (Auto) 0 % (0-3) Neutrophils # (Auto) 5.7 x10^3uL (1.8-7.7) Lymphocytes # (Auto) 1.0 x10^3/uL (1.0-4.8) Monocytes # (Auto) 0.9 x10^3/uL (0.0-1.1) Eosinophils # (Auto) 0.0 x10^3/uL (0.0-0.7) Basophils # (Auto) 0.0 x10^3/uL (0.0-0.2) Sodium Level 144 mmol/L (136-145) Potassium Level 4.2 mmol/L (3.5-5.1) Chloride Level 106 mmol/L (98-107) Carbon Dioxide Level 22 mmol/L (21-32) Anion Gap 16 (6-14) H Blood Urea Nitrogen 31 mg/dL (7-20) H Creatinine 1.0 mg/dL (0.6-1.0) Estimated GFR (Cockcroft-Gault) 55.6 BUN/Creatinine Ratio 31 (6-20) H Glucose Level 134 mg/dL (70-99) H Calcium Level 9.0 mg/dL (8.5-10.1) Magnesium Level 1.8 mg/dL (1.8-2.4) Total Bilirubin 0.2 mg/dL (0.2-1.0) Aspartate Amino Transferase (AST) 23 U/L (15-37) Alanine Aminotransferase (ALT) 33 U/L (14-59) Alkaline Phosphatase 79 U/L (46-116) Creatine Kinase 149 U/L (26-192) Creatine Kinase MB (Mass) 5.1 ng/mL (0.0-3.6) H Creatine Kinase MB Relative Index 3.4 % (0-4) Troponin I Quantitative < 0.017 ng/mL (0.000-0.055) RF-Szh-Q-Type Natriuretic Peptide 125 pg/mL (0-124) H Total Protein 7.5 g/dL (6.4-8.2) Albumin 3.4 g/dL (3.4-5.0) Albumin/Globulin Ratio 0.8 (1.0-1.7) L O2 Saturation 97 % (92-99) Arterial Blood pH 7.40 (7.35-7.45) Arterial Blood pCO2 at Patient Temp 38 mmHg (35-46) Arterial Blood pO2 at Patient Temp 97 mmHg (65-108) Arterial Blood HCO3 23 mmol/L (21-28) Arterial Blood Base Excess -1 mmol/L (-3-3) Oxyhemoglobin 96.4 % Methemoglobin 0.3 % (0.0-1.9) Carbon Monoxide, Quantitative 0.3 % (0.0-1.9) FiO2 30% nc Laboratory Tests 01/20/19 16:25 Laboratory Tests 01/20/19 16:25 EKG EKG [] Radiology/Procedures Radiology/Procedures [] Course & Med Decision Making Course & Med Decision Making Pertinent Labs and Imaging studies reviewed. (See chart for details) This is a 64-year-old female patient presenting to the ED today with shortness of breath that has been going on for week. Chest x-ray is negative for any acute findings, noted for emphysema. Labs are negative. Patient was given a DuoNeb treatment, has continued to have shortness of breath. She was given 1 hr breathing treatment which is still running. She was also given Solu-Medrol. She' ll be admitted. Consulted with Dr. franklin who accepted patient for admission Dragon Disclaimer Dragon Disclaimer This electronic medical record was generated, in whole or in part, using a voice recognition dictation system. Departure Departure Impression: Primary Impression: COPD exacerbation Additional Impression: Shortness of breath Disposition: ADMITTED INPATIENT Condition: STABLE Referrals: JONI GAR (PCP) Problem Qualifiers KI CORTEZ APRN Jan 20, 2019 17:59
[2019-01-20] MEDS ORDERED: MORPHINE SULFATE 2 MG/ML VIAL. IV PRN (18:15)
[2019-01-20] MEDS ORDERED: ACETAMINOPHEN 325 MG TABLET. PO PRN (18:15)
[2019-01-20 19:00] VITALS: BP 131/92
[2019-01-20] MEDS ORDERED: BUDE0.25 NEB (20:16)
[2019-01-20] MEDS ORDERED: ARFO15VI NEB (20:16)
[2019-01-20] MEDS: IPRATRPIUM/ALBUTEROL 0.5/2.5MG 3 ML NEBU. NEB SCH (20:24)
[2019-01-20] MEDS: methylPREDNISolone SOD SUCC PF 40 MG/ML VIAL. IV SCH (20:59)
[2019-01-20 22:49] VITALS: BP 112/71
--- NOTE | 2019-01-20 23:09 | NUR ---
The patient expressed thought of suicide on 01/19/19. Suicide Risk Assessment was completed and reviewed by the nursing outbound supervisor.
[2019-01-20] MEDS ORDERED: traZODone 50 MG TABLET. PO ONE (23:15)
[2019-01-21 02:56] VITALS: BP 103/56
[2019-01-21 03:08] LABS: BASO % 0 % (0-3); EOS % 0 % (0-3); HEMATOCRIT 37.2 % (36.0-47.0); HEMOGLOBIN 12.1 g/dL (12.0-15.5); LYMPH # 0.7 x10^3/uL (1.0-4.8); LYMPH % 10 % (24-48); MEAN CORPUSCULAR HEMOGLOBIN 27 pg (25-35); MEAN CORPUSCULAR HGB CONC 32 g/dL (31-37); MEAN CORPUSCULAR VOLUME 84 fL (79-100); MONO # 0.4 x10^3/uL (0.0-1.1); MONO % 6 % (0-9); NEUT # 5.5 x10^3uL (1.8-7.7); NEUT % 84 % (31-73); PLATELET COUNT 243 x10^3/uL (140-400); RED BLOOD COUNT 4.43 x10^6/uL (3.50-5.40); RED CELL DISTRIBUTION WIDTH 14.6 % (11.5-14.5); WHITE BLOOD COUNT 6.5 x10^3/uL (4.0-11.0)
[2019-01-21 03:30] LABS: CALCIUM 8.9 mg/dL (8.5-10.1); CREATININE 0.9 mg/dL (0.6-1.0); GFR 62.8; POTASSIUM 3.8 mmol/L (3.5-5.1)
[2019-01-21 07:00] VITALS: BP 113/69
[2019-01-21] MEDS: methylPREDNISolone SOD SUCC PF 40 MG/ML VIAL. IV SCH ×2 (08:01→20:54)
[2019-01-21] MEDS: IPRATRPIUM/ALBUTEROL 0.5/2.5MG 3 ML NEBU. NEB SCH ×4 (08:20→19:31)
--- NOTE | 2019-01-21 09:43 | EKG ---
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
--- NOTE | 2019-01-21 10:12 | PDOC ---
Provider Note Provider Note Pt seen.H&P dictated.#[id number] DAMARIS GARCIA MD Jan 21, 2019 10:12
[2019-01-21] MEDS ORDERED: ZOLPIDEM 5 MG TABLET. PO PRN (10:15)
[2019-01-21] MEDS ORDERED: DICYCLOMINE HCL 10 MG CAPSULE PO PRN (10:15)
[2019-01-21] MEDS ORDERED: ALBUTEROL SULFATE 2.5 MG/3 ML NEBU. NEB PRN (10:30)
[2019-01-21 11:00] VITALS: BP 103/65
[2019-01-21] MEDS: ENOXAPARIN 40 MG/0.4 ML SYRINGE. SQ SCH (11:00)
[2019-01-21] MEDS: DOXYCYCLINE HYCLATE 100 MG TABLET PO SCH ×2 (11:00→20:53)
[2019-01-21] MEDS: LEVOTHYROXINE 100 MCG TABLET PO SCH (11:00)
[2019-01-21] MEDS: BUDESONIDE 0.5 MG/2 ML NEBU. NEB SCH ×2 (11:50→19:31)
--- NOTE | 2019-01-21 13:30 | HP ---
ADMIT DATE: 01/20/2019 LOCATION: 512. REASON FOR ADMISSION TO THE HOSPITAL: COPD with oxygen exacerbation, failure of outpatient treatment. HISTORY OF PRESENT ILLNESS: The patient is a 64-year-old female who has history of COPD, has a nebulizer at home, oxygen at home. She came to the Emergency Room day before yesterday and was given medications, was treated in the ER, discharged home and she came back again with more short of breath and wheezing and was admitted to the hospital. Chest x-ray was COPD, no infiltrates. Laboratory data was unremarkable. She was given Solu-Medrol, DuoNeb and was admitted for inpatient treatment. PAST MEDICAL HISTORY: COPD, hypothyroidism, emphysema. PAST SURGICAL HISTORY: No major surgeries. ALLERGIES: No known drug allergies. Personal History: smoked for 30 yrs 2 packs ,quite 2 yrs ago. MEDICATIONS AT HOME: The patient is on albuterol inhaler, Zofran for nausea, prednisone was given recently in the ER, nebulizer as a DuoNeb at home, Brovana twice a day, budesonide twice a day, dicyclomine 10 mg q.6 h., levothyroxine 100 mcg daily, Dulera twice a day ,Spiriva 1 daily. She is on home oxygen 2.5 liters and also she has a breathing machine at home. REVIEW OF SYMPTOMS: PULMONARY: Cough, no sputum. No fever. GASTROINTESTINAL: No nausea. Rest of the 14-system was reviewed and negative. FAMILY HISTORY: Positive for COPD and hypertension. PHYSICAL EXAMINATION: GENERAL: The patient is slightly wheezing. VITAL SIGNS: At the time of admission show a temperature 98, pulse 125, respirations 20, blood pressure 122/81, 95% on room air. HEENT: Head is atraumatic. Pupils equal. Oral cavity: Slight posterior pharyngeal postnasal drainage. NECK: Supple. Thyroid not enlarged. JVD not elevated. CHEST: Symmetrical, COPD pattern. CARDIOVASCULAR: S1, S2. LUNGS: Diminished breath sounds and wheezing in the posterior lungs bilateral. ABDOMEN: Soft, no mass palpable. EXTERNAL GENITALIA: No Quintero. RECTAL: Deferred. EXTREMITIES: No calf tenderness, no edema. Pulses 1+. NEUROLOGIC: Moving all extremities. No focal deficits noted. LABORATORY DATA: Shows a white count of 7, hemoglobin 13, platelets 588. Electrolytes show sodium 144, potassium 4.2, chloride 106, bicarbonate 22, anion gap 16, BUN 31, creatinine 1.0, glucose 134. LFTs normal. CPK negative. Blood gas; pH 7.40, pCO2 of 38, pO2 of 97, bicarbonate 22, 97% on 30% oxygen. Chest x-ray shows emphysema, no acute lung infiltrates. FINAL IMPRESSION: 1. Chronic obstructive pulmonary disease with acute exacerbation. 2. Chronic obstructive pulmonary disease, on home oxygen 2.5 liters. 3. Failure of outpatient treatment. 4. Hypothyroidism. 5.Ex smoker PLAN: At this time, admit to hospital. Given Solu-Medrol 125 mg, Solu-Medrol 40 mg q.12 h., DuoNeb 4 times daily plus p.r.n. We will add doxycycline 100 mg twice daily and we will see how the patient's condition improves in the next 24-48 hours.Pt up to date on vaccinations flue and Pneumovax.She does not smoke now. DAMARIS GARCIA MD DR: ISMAEL/lela JOB#: [id number] / [id number] ALONDRA
[2019-01-21] MEDS: SERTRALINE 25 MG TABLET. PO SCH (14:08)
[2019-01-21] MEDS: FAMOTIDINE 20 MG TABLET. PO SCH ×2 (14:08→20:54)
--- NOTE | 2019-01-21 14:09 | CONS ---
DATE OF CONSULTATION: ATTENDING PHYSICIAN: Dr. Tee. REASON FOR CONSULTATION: Dyspnea. HISTORY OF PRESENT ILLNESS: The patient is a 64-year-old with history of COPD, suspect severe. She smoked for 40 years. She quit 2 years ago. She uses oxygen on a p.r.n. basis. The patient states her home concentrator has not been working well either. She was brought into the hospital with increased shortness of breath. She has a mild cough. No chest pain, no fever, no chills, no headaches, no nausea or vomiting, no diarrhea. Chest x-ray did not reveal any acute infiltrates. There is a calcified granuloma in the right lower lobe. She also states she has been lately depressed and has been anxious. PAST MEDICAL HISTORY: Significant for COPD, could be severe; history of hypothyroidism. PAST SURGICAL HISTORY: No recent major surgery. ALLERGIES: None. MEDICATIONS: Reviewed, as listed in the MRAD, including bronchodilators, DVT prophylaxis with Lovenox and IV Solu-Medrol. REVIEW OF SYSTEMS: Twelve-point system obtained. Pertinent positives discussed in my history of present illness, otherwise noncontributory. All systems that were negative were reviewed as well. SOCIAL HISTORY: Smoked for 40+ years before quitting 2 years ago. FAMILY HISTORY: Noncontributory to lungs. PHYSICAL EXAMINATION: VITAL SIGNS: Stable, afebrile, pulse ox 97% on 2.5 liters. NECK: Supple. LUNGS: Clear. CARDIOVASCULAR: Regular rate. ABDOMEN: Soft, nontender. EXTREMITIES: With no pitting edema. LABORATORY DATA: Reviewed. White cell count 6.5, hemoglobin 12.1. ABGs with a pH of 7.40, pCO2 of 30 and a pO2 of 97 on 30% FiO2. IMPRESSION: 1. Acute hypoxic respiratory failure secondary to acute exacerbation of chronic obstructive pulmonary disease. 2. The patient with suspected severe chronic obstructive pulmonary disease. She smoked for 40+ years. 3. No acute infiltrates on a chest x-ray. RECOMMENDATIONS: 1. Continue with present bronchodilators. 2. Steroids with taper. 3. No need for antibiotics. 4. PFTs as an outpatient. 5. Wean her off oxygen. May need a 6-minute walk test at discharge. 6. Clinically improved, possible discharge in the next 24-48 hours. JOSAFAT BOOTH MD DR: OLEGARIO/lela JOB#: [id number] / [id number]
--- NOTE | 2019-01-21 14:43 | NUR ---
SW following pt for anticipated dc needs. Chart reviewed. Pt lives at home with family and on oxygen. No discharge recommendations noted at this time. Will continue to follow.
[2019-01-21 15:00] VITALS: BP 112/72
[2019-01-21 19:00] VITALS: BP_SYST 114; BP_SYST 174; BP_DIAS 72
[2019-01-21] MEDS: LACTOBACILLUS RHAMNOSUS GG 1 CAPSULE. PO SCH (20:54)
[2019-01-21] MEDS ORDERED: NON FORMULARY ITEM (Budesonide 1 VIAL) NEB SCH (21:00)
[2019-01-21] MEDS ORDERED: FAMOTIDINE 20 MG TABLET. PO SCH (21:00)
[2019-01-21] MEDS ORDERED: NON FORMULARY ITEM (Arformoterol Tartrate (Brovana) 1 VIAL) NEB SCH (21:00)
[2019-01-21 23:00] VITALS: BP 116/65
[2019-01-22 03:00] VITALS: BP 110/74
[2019-01-22] MEDS: LEVOTHYROXINE 100 MCG TABLET PO SCH (05:30)
[2019-01-22 07:00] VITALS: BP 117/72
[2019-01-22] MEDS: IPRATRPIUM/ALBUTEROL 0.5/2.5MG 3 ML NEBU. NEB SCH ×2 (07:30→11:44)
[2019-01-22] MEDS: BUDESONIDE 0.5 MG/2 ML NEBU. NEB SCH (07:30)
[2019-01-22] MEDS: methylPREDNISolone SOD SUCC PF 40 MG/ML VIAL. IV SCH (08:58)
[2019-01-22] MEDS: SERTRALINE 25 MG TABLET. PO SCH (08:58)
[2019-01-22] MEDS: FAMOTIDINE 20 MG TABLET. PO SCH (08:58)
[2019-01-22] MEDS: LACTOBACILLUS RHAMNOSUS GG 1 CAPSULE. PO SCH (08:58)
[2019-01-22] MEDS: DOXYCYCLINE HYCLATE 100 MG TABLET PO SCH (08:59)
[2019-01-22] MEDS ORDERED: SERTRALINE 25 MG TABLET. PO SCH (09:00)
[2019-01-22] MEDS ORDERED: NON FORMULARY ITEM (Tiotropium Bromide (Spiriva) 1 CAP) IH SCH (09:00)
[2019-01-22] MEDS ORDERED: NON FORMULARY ITEM (Mometasone/Formoterol (Dulera 200 Mcg/5 Mcg Inhaler) 1 PUFF) IH SCH (09:00)
--- NOTE | 2019-01-22 10:29 | PDOC ---
PROGRESS NOTES Subjective Subjective pt want to go home Objective Objective Vital Signs Date Time Temp Pulse Resp B/P (MAP) Pulse Ox O2 Delivery O2 Flow Rate FiO2 01/22/19 07:36 96 Room Air 2.5 01/22/19 07:00 98.4 92 20 117/72 (87) 98.4 Intake and Output 01/22/19 06:59 Intake Total 120 ml Balance 120 ml Intake Oral 120 ml # Voids 5 Physical Exam Abdomen: Normal bowel sounds, Soft Heart: Regular rate, Normal S1 Extremities: No clubbing General: Alert, Oriented X3 Lungs: Other (mild wheezing) MUSCULOSKELETAL: No joint tenderness, No swelling Neuro: Normal speech Psych/Mental Status: Mental status NL Skin: No breakdown Diagnosis Problem List Problems Medical Problems: (1) COPD exacerbation Status: Acute Assessment Assessment Problems Medical Problems: (1) COPD exacerbation Status: Acute FINAL IMPRESSION: 1. Chronic obstructive pulmonary disease with acute exacerbation. 2. Chronic obstructive pulmonary disease, on home oxygen 2.5 liters. 3. Failure of outpatient treatment. 4. Hypothyroidism. PLAN: d/c home today doxycycline po bid x 7days po prednisone 50 mg x 5 days 6 mts walk, ?home oxygen. labs ok cxr -ve. At this time, admit to hospital. Given Solu-Medrol 125 mg, Solu-Medrol 40 mg q.12 h., DuoNeb 4 times daily plus p.r.n. We will add doxycycline 100 mg twice daily and we will see how the patient's condition improves in the next 24-48 hours. Plan Plan of Care Problems Medical Problems: (1) COPD exacerbation Status: Acute Comment Review of Relevant I have reviewed the following items sandee (where applicable) has been applied. Medications Current Medications Albuterol Sulfate (Ventolin Neb Soln) 2.5 mg PRN Q6HRS PRN NEB SHORTNESS OF BREATH; Start 01/21/19 at 10:30 Albuterol/ Ipratropium (Duoneb) 3 ml RTQID NEB Last administered on 01/22/19at 07:30; Start 01/21/19 at 12:00 Budesonide (Pulmicort) 0.5 mg RTBID NEB Last administered on 01/22/19at 07:30; Start 01/21/19 at 12:00 Doxycycline Hyclate (Vibra-Tab) 100 mg BID PO Last administered on 01/22/19at 08 :59; Start 01/21/19 at 11:00 Enoxaparin Sodium (Lovenox 40mg Syringe) 40 mg Q24H SQ Last administered on 10/30at 11:00; Start 01/21/19 at 11:00 Famotidine (Pepcid) 20 mg BID PO Last administered on 01/22/19at 08:58; Start at 13:45 Famotidine (Pepcid) 20 mg BID PO ; Start 01/21/19 at 21:00; Stop 01/21/19 at 21: 00; Status DC Lactobacillus Rhamnosus (Culturelle) 1 cap BID PO Last administered on 08:58; Start 01/21/19 at 21:00 Levothyroxine Sodium (Synthroid) 100 mcg DAILY07 PO Last administered on at 05:30; Start 01/21/19 at 11:00 Non-Formulary Medication (Arformoterol Tartrate (Brovana)) 1 vial BID NEB ; Start 01/21/19 at 21:00; Status UNV Non-Formulary Medication (Budesonide ) 1 vial BID NEB ; Start 01/21/19 at 21:00 ; Status UNV Non-Formulary Medication (Mometasone/ Formoterol (Dulera 200 Mcg/5 Mcg Inhaler) ) 1 puff DAILY IH ; Start 01/22/19 at 09:00; Status UNV Non-Formulary Medication (Tiotropium [place] (Spiriva)) 1 cap DAILY IH ; Start 01/22/19 at 09:00; Status UNV Sertraline HCl (Zoloft) 25 mg DAILY PO Last administered on 01/22/19at 08:58; Start 01/21/19 at 13:45 Sertraline HCl (Zoloft) 25 mg DAILY PO ; Start 01/22/19 at 09:00; Stop 01/22/19 at 09:00; Status DC Vitals/I & O Vital Sign - Last 24 Hours 01/21/19 01/21/19 01/21/19 01/21/19 11:00 11:51 15:00 16:26 Temp 98.0 99.0 98.0 99.0 Pulse 91 103 Resp 18 18 B/P (MAP) 103/65 (78) 112/72 (85) Pulse Ox 97 96 98 O2 Delivery Nasal Cannula Nasal Cannula Nasal Cannula Nasal Cannula O2 Flow Rate 2.5 2.5 2.5 2.5 01/21/19 01/21/19 01/21/19 01/21/19 19:00 19:31 20:18 23:00 Temp 97.9 97.9 Pulse 90 Resp 18 B/P (MAP) 174/72 (106) Pulse Ox 97 98 O2 Delivery Nasal Cannula Nasal Cannula Nasal Cannula O2 Flow Rate 2.5 2.5 2.5 01/22/19 01/22/19 01/22/19 01/22/19 03:00 07:00 07:32 07:36 Temp 97.4 98.4 97.4 98.4 Pulse 82 92 Resp 17 20 B/P (MAP) 110/74 (86) 117/72 (87) Pulse Ox 95 98 96 O2 Delivery Nasal Cannula Nasal Cannula Nasal Cannula Room Air O2 Flow Rate 2.5 2.5 2.5 2.5 Intake and Output 01/21/19 01/21/19 01/22/19 14:59 22:59 06:59 Intake Total 0 ml 120 ml Balance 0 ml 120 ml DAMARIS GARCIA MD Jan 22, 2019 10:29
[2019-01-22] MEDS ORDERED: DOXY100T PO (10:32)
[2019-01-22] MEDS ORDERED: PRED50TA PO (10:32)
[2019-01-22 11:00] VITALS: BP 122/72
[2019-01-22] MEDS: ENOXAPARIN 40 MG/0.4 ML SYRINGE. SQ SCH (11:00)
--- NOTE | 2019-01-22 11:34 | PDOC ---
PULMONARY PROGRESS NOTES Subjective feels better Vitals Vital Signs Date Time Temp Pulse Resp B/P (MAP) Pulse Ox O2 Delivery O2 Flow Rate FiO2 01/22/19 07:50 Nasal Cannula 2.5 01/22/19 07:36 96 01/22/19 07:00 98.4 92 20 117/72 (87) 98.4 General: Alert, No acute distress Lungs: Clear Cardiovascular: S1, S2 Abdomen: Soft Neuro Exam: Alert Extremities: No Edema Labs Laboratory Tests Test 01/20/19 16:25 01/20/19 16:33 01/21/19 02:35 White Blood Count 7.6 x10^3/uL (4.0-11.0) 6.5 x10^3/uL (4.0-11.0) Red Blood Count 4.86 x10^6/uL (3.50-5.40) 4.43 x10^6/uL (3.50-5.40) Hemoglobin 13.5 g/dL (12.0-15.5) 12.1 g/dL (12.0-15.5) Hematocrit 41.2 % (36.0-47.0) 37.2 % (36.0-47.0) Mean Corpuscular Volume 85 fL (79-100) 84 fL (79-100) Mean Corpuscular Hemoglobin 28 pg (25-35) 27 pg (25-35) Mean Corpuscular Hemoglobin Concent 33 g/dL (31-37) 32 g/dL (31-37) Red Cell Distribution Width 15.2 % (11.5-14.5) 14.6 % (11.5-14.5) Platelet Count 288 x10^3/uL (140-400) 243 x10^3/uL (140-400) Neutrophils (%) (Auto) 75 % (31-73) 84 % (31-73) Lymphocytes (%) (Auto) 13 % (24-48) 10 % (24-48) Monocytes (%) (Auto) 12 % (0-9) 6 % (0-9) Eosinophils (%) (Auto) 0 % (0-3) 0 % (0-3) Basophils (%) (Auto) 0 % (0-3) 0 % (0-3) Neutrophils # (Auto) 5.7 x10^3uL (1.8-7.7) 5.5 x10^3uL (1.8-7.7) Lymphocytes # (Auto) 1.0 x10^3/uL (1.0-4.8) 0.7 x10^3/uL (1.0-4.8) Monocytes # (Auto) 0.9 x10^3/uL (0.0-1.1) 0.4 x10^3/uL (0.0-1.1) Eosinophils # (Auto) 0.0 x10^3/uL (0.0-0.7) 0.0 x10^3/uL (0.0-0.7) Basophils # (Auto) 0.0 x10^3/uL (0.0-0.2) 0.0 x10^3/uL (0.0-0.2) Sodium Level 144 mmol/L (136-145) 144 mmol/L (136-145) Potassium Level 4.2 mmol/L (3.5-5.1) 3.8 mmol/L (3.5-5.1) Chloride Level 106 mmol/L (98-107) 106 mmol/L (98-107) Carbon Dioxide Level 22 mmol/L (21-32) 24 mmol/L (21-32) Anion Gap 16 (6-14) 14 (6-14) Blood Urea Nitrogen 31 mg/dL (7-20) 29 mg/dL (7-20) Creatinine 1.0 mg/dL (0.6-1.0) 0.9 mg/dL (0.6-1.0) Estimated GFR (Cockcroft-Gault) 55.6 62.8 BUN/Creatinine Ratio 31 (6-20) Glucose Level 134 mg/dL (70-99) 132 mg/dL (70-99) Calcium Level 9.0 mg/dL (8.5-10.1) 8.9 mg/dL (8.5-10.1) Magnesium Level 1.8 mg/dL (1.8-2.4) Total Bilirubin 0.2 mg/dL (0.2-1.0) Aspartate Amino Transf (AST/SGOT) 23 U/L (15-37) Alanine Aminotransferase (ALT/SGPT) 33 U/L (14-59) Alkaline Phosphatase 79 U/L (46-116) Creatine Kinase 149 U/L (26-192) Creatine Kinase MB (Mass) 5.1 ng/mL (0.0-3.6) Creatine Kinase MB Relative Index 3.4 % (0-4) Troponin I Quantitative < 0.017 ng/mL (0.000-0.055) KF-Kuk-I-Type Natriuretic Peptide 125 pg/mL (0-124) Total Protein 7.5 g/dL (6.4-8.2) Albumin 3.4 g/dL (3.4-5.0) Albumin/Globulin Ratio 0.8 (1.0-1.7) O2 Saturation 97 % (92-99) Arterial Blood pH 7.40 (7.35-7.45) Arterial Blood pCO2 at Patient Temp 38 mmHg (35-46) Arterial Blood pO2 at Patient Temp 97 mmHg (65-108) Arterial Blood HCO3 23 mmol/L (21-28) Arterial Blood Base Excess -1 mmol/L (-3-3) Oxyhemoglobin 96.4 % Methemoglobin 0.3 % (0.0-1.9) Carbon Monoxide, Quantitative 0.3 % (0.0-1.9) FiO2 30% nc Medications Active Scripts Medications Dose Route/Sig Max Daily Dose Days Date Category Prednisone 50 Mg Tablet 1 Tab PO DAILY 01/22/19 Rx Doxycycline Hyclate 100 Mg Tablet 100 Mg PO BID 7 01/22/19 Rx Budesonide 0.25 Mg/2 Ml Ampul.neb 1 Vial NEB BID 01/20/19 Reported Brovana (Arformoterol Tartrate) 15 Mcg/2 Ml Vial.neb 1 Vial NEB BID 01/20/19 Reported Dicyclomine Hcl 10 Mg Capsule 1 Cap PO PRN Q6HRS PRN 01/19/19 Rx Ondansetron Odt (Ondansetron) 4 Mg Tab.rapdis 1 Tab PO PRN Q6-8HRS PRN 01/19/19 Rx Spiriva (Tiotropium [place]) 18 Mcg Cap.w.dev 1 Cap IH DAILY 12/21/17 Rx Levothyroxine Sodium 100 Mcg Tablet 1 Tab PO DAILY 12/21/17 Reported Dulera 200 Mcg/5 Mcg Inhaler (Mometasone/Formoterol) 13 Gm Hfa.aer.ad 1 Puff IH DAILY 09/09/16 Reported Proair Hfa Inhaler (Albuterol Sulfate) 8.5 Gm Hfa.aer.ad 2 Puff IH PRN Q4-6HRS 06/29/14 Reported Albuterol Sulfate Conc Neb Soln (Albuterol Sulfate) 2.5 Mg/0.5 Ml Vial.neb 1 Vial NEB Q6HRS 06/29/14 Reported Impression . 1. Acute hypoxic respiratory failure secondary to acute exacerbation of chronic obstructive pulmonary disease. 2. The patient with suspected severe chronic obstructive pulmonary disease. She smoked for 40+ years. 3. No acute infiltrates on a chest x-ray. Plan . 1. Continue with present bronchodilators. 2. Steroids with taper. 3. No need for antibiotics. 4. PFTs as an outpatient. 5. 6-minute walk test at discharge. 6. Clinically improved, discharge today JOSAFAT BOOTH MD Jan 22, 2019 11:34
[2019-01-22] MEDS ORDERED: SERT25TA4 PO (12:32)
--- NOTE | 2019-01-22 13:48 | NUR ---
Discharge Note: SERVANDO PATEL Discharge instructions and discharge home medications reviewed with Patient and a copy given. All questions have been answered and understanding verbalized. The following instructions and handouts were given: discharge instructions, new presriptions, education, and follow up recommendation. Discontinued lines and drains: Peripheral IV discontinued intact. Patient discharged to Home or Self Care with Spouse via Wheelchair off unit by IRRIGATIONIST.
--- NOTE | 2019-01-22 16:44 | PDOC ---
Provider Note Provider Note Discharge summary dictated.#[id number] DAMARIS GARCIA MD Jan 22, 2019 16:44
--- NOTE | 2019-01-22 22:32 | DS ---
DATE OF DISCHARGE: 01/22/2019 REASON FOR ADMISSION TO THE HOSPITAL: COPD with acute exacerbation. CONSULTATIONS: Dr. Daniel. PROCEDURES: None. HOSPITAL COURSE: The patient is a 64-year-old female. The patient has a history of chronic COPD. She was in the ER, the night before was sent home with prednisone, did not get better, came back again, was admitted to the hospital, was given Solu-Medrol IV, DuoNeb and started on doxycycline. The patient's condition improved in the next 24-48 hours, seen by Pulmonology and she was discharged. Chest x-ray was negative. Laboratory data was unremarkable. Blood gas was within reasonable. The patient had a 6-minute walk, did not show any desaturation. The patient stopped smoking 2 years back. She is up-to-date on flu and pneumonia shots. FINAL DIAGNOSES: Chronic obstructive pulmonary disease with acute exacerbation and anxiety. Follow up in the office with Dr. Valadez. DAMARIS GARCIA MD DR: ISMAEL/nts JOB#: [id number] / [id number]
== END 2019-01-22 13:49 | disposition home health service (06) | DRG 189 ==
LOC: ER 16:08 → 5 NORTH 17:25
PROVIDERS: ADMIT Internal Medicine; ATTEND Internal Medicine
DX: J96.01 Acute respiratory failure with hypoxia (principal); J44.1 Chronic obstructive pulmonary disease with (acute) exacerbation; Z82.5 Family history of asthma and other chronic lower respiratory diseases; E03.9 Hypothyroidism, unspecified; Z87.891 Personal history of nicotine dependence; Z99.81 Dependence on supplemental oxygen; F41.9 Anxiety disorder, unspecified; Z23 Encounter for immunization; Z82.49 Family history of ischemic heart disease and other diseases of the circulatory system
CPT/HCPCS: 36415; 36600; 71045; 71046; 80048; 80053; 81003; 82553; 82805; 83690; 83735; 83880; 84484; 85007; 85025; 93005; 94618; 94640; 94644; 94760; 96374; J1650; J2920; J2930; J7613; J7620; J7626; 99285-25

== ENCOUNTER 2020-02-05 14:12 | Observation (INO) | payer MEDICARE, OTHER ==
[~2020-02-05] VITALS: Ht 161.3 cm; Wt 69.1 kg
[2020-02-05] VITALS (10 sets, daily range): BP systolic 96–122; BP diastolic 53–82
[~2020-02-05 14:12] MED LIST changes: +ARFO15VI NEB; +BUDE0.25 NEB; +DOXY100T PO; +SERT25TA4 PO
[2020-02-05] MEDS ORDERED: DIPH,PERTUSS(ACELL),TET VAC/PF 0.5 ML SYRINGE. VAX IM ONE (14:45)
[2020-02-05] MEDS ORDERED: ONDANSETRON PF 4 MG/2 ML VIAL. IV ONE (14:45)
[2020-02-05] MEDS ORDERED: IV NORMAL SALINE 500ML BAG 500 ML IV ONE (14:45)
[2020-02-05] MEDS ORDERED: MORPHINE SULFATE 4 MG/ML VIAL. IV ONE (14:45)
--- NOTE | 2020-02-05 14:53 | PHYS DOC ---
Past Medical History Past Medical History: COPD, Hypothyroid, Other Additional Past Medical Histor: emphysema Past Surgical History: No Surgical History Smoking Status: Former Smoker Alcohol Use: None Drug Use: None Adult General Chief Complaint Chief Complaint: ANIMAL BITE HPI HPI Patient is a 65 year old female, who presents to the emergency department with complaints of a dog bite to her left ankle. Patient states that her pit bull terrier attacked her this afternoon. She states that the animal is up-to-date on all of his vaccinations. She denies any decreased movement or sensation in the affected extremity. Patient states that her leg is starting to have a shooting tingling sensation. She currently rates the pain a 4 out of 10 on the pain scale, states the pain is worse with movement and touch. Patient states that her last tetanus shot was greater than 5 years ago. Patient also reports that she has a history of COPD and was prescribed azithromycin by her primary care doctor yesterday for a cough that she has had for 3 months. She denies any fever, body aches, chills, nausea, vomiting, diarrhea, increased shortness of breath, chest pain, palpitations, headache or dizziness. She denies any known exposure to COVID-19, or recent travel. Review of Systems Review of Systems Complete ROS is negative unless otherwise noted in HPI. Current Medications Current Medications Current Medications Medications (Trade) Dose Ordered Sig/Rebeca Start Time Stop Time Status Last Admin Dose Admin Cefazolin Sodium/ Dextrose 50 ml @ 100 mls/hr 1X ONCE 02/05/20 15:15 02/05/20 15:44 Diphtheria/ Tetanus/Acell Pertussis (ADACEL TDap SYRINGE) 0.5 ml ONCE ONCE 02/05/20 14:45 02/05/20 14:50 DC 02/05/20 15:00 0.5 ML Fentanyl Citrate (Fentanyl 2ml Vial) 50 mcg PRN Q5MIN PRN 02/05/20 15:15 02/06/20 15:14 Hydromorphone HCl (Dilaudid) 0.5 mg PRN Q10MIN PRN 02/05/20 15:15 02/06/20 15:14 Lidocaine HCl (Xylocaine-Mpf 1% 2ml Vial) 2 ml PRN 1X PRN 02/05/20 15:15 02/06/20 15:14 Morphine Sulfate (Morphine Sulfate) 1 mg PRN Q10MIN PRN 02/05/20 15:15 02/06/20 15:14 Ondansetron HCl (Zofran) 4 mg PRN Q6HRS PRN 02/05/20 15:15 02/06/20 15:14 Prochlorperazine Edisylate (Compazine) 5 mg PACU PRN PRN 02/05/20 15:15 02/06/20 15:14 Ringer's Solution 1,000 ml @ 30 mls/hr Q24H 02/05/20 15:09 02/06/20 03:08 Sodium Chloride 500 ml @ 500 mls/hr 1X ONCE 02/05/20 14:45 02/05/20 15:44 02/05/20 14:59 500 MLS/HR Allergies Allergies Allergies Coded Allergies Type Severity Reaction Last Updated Verified No Known Drug Allergies 09/09/16 No Physical Exam Physical Exam See Above Constitutional: Well developed, well nourished, anxious, non-toxic appearance. [] HENT: Normocephalic, atraumatic, bilateral external ears normal, nose normal. [] Eyes: PERRLA, EOMI, conjunctiva normal, no discharge. [] Neck: Normal range of motion, no stridor. [] Cardiovascular:Heart rate regular rhythm Lungs & Thorax: Respirations even and unlabored, no retractions, no respiratory distress Skin: Warm, dry; 8 cm irregularly shaped deep laceration to medial LLE without active bleeding; 3 cm curved laceration noted to lateral LLE without active bleeding; Multiple <0.5 cm diameter puncture wounds noted to LLE without active bleeding. Extremities: LLE: lower leg TTP without crepitus or obvious deformity, 2+ pedal and posterior tibial pulses, full extension and flexion of left ankle, sensation intact, no clubbing Neurologic: Alert and oriented X 3, no focal deficits noted. [] Psychologic: Affect normal, judgement normal, mood normal. [] Current Patient Data Vital Signs Vital Signs Date Time Temp Pulse Resp B/P (MAP) Pulse Ox O2 Delivery O2 Flow Rate FiO2 02/05/20 14:58 20 97 Room Air 02/05/20 14:18 98.1 141 114/85 (95) 98.1 EKG EKG [] Radiology/Procedures Radiology/Procedures PROCEDURE: ANKLE LEFT 3V Examination: TIBIA FIBULA LEFT, ANKLE LEFT 3V History: Dog bite to the left lower extremity Comparison/Correlation: None Findings: 3 images of the left ankle and 2 images of the left tibia and fibula were obtained. Soft tissue gas is present circumferentially about the distal tibial shaft level with findings of laceration injury. Ankle joint mortise is adequate. Knee joint is unremarkable on the frontal and lateral projections provided. No fracture or bone destruction. No radiopaque foreign body. Impression: Soft tissue lacerations about the distal tibial level corresponding to reported dog bite history.[] Course & Med Decision Making Course & Med Decision Making Pertinent Labs and Imaging studies reviewed. (See chart for details) 1445- Spoke with Dr. Ng and advised of need for surgical debridement and repair. He will come evaluate patient in the ER before scheduling procedure. 1500- Dr. Ng at bedside to evaluate patient. 1520-spoke with Dr. Tee who is the admitting physician, and care was assumed following discussion of patient, will admit for observation to the med/surg floor. Patient's vital signs stable. Patient remains afebrile, appears nontoxic, respirations even and unlabored. Patient's case and plan of care also discussed with Dr. Zazueta [] Dragon Disclaimer Dragon Disclaimer This electronic medical record was generated, in whole or in part, using a voice recognition dictation system. Departure Departure Impression: Primary Impression: Dog bite of multiple sites of left lower extremity Additional Impressions: Open wound of left lower leg due to dog bite Need for DTaP vaccination Disposition: ADMITTED INPATIENT Admitting Physician: Nay SALDAÑA Vinaya Condition: STABLE Referrals: JONI GAR (PCP) Problem Qualifiers Primary Impression: Dog bite of multiple sites of left lower extremity Encounter type: initial encounter Qualified Codes: S81.852A - Open bite, left lower leg, initial encounter; W54.0XXA - Bitten by dog, initial encounter MOISE ULLOA APRN Feb 05, 2020 14:52
[2020-02-05] MEDS ORDERED: IV RINGERS,LACTATED 1000ML 1,000 ML IV SCH (15:09)
[2020-02-05] MEDS ORDERED: LIDOCAINE 1% PF 2 ML VIAL. ID PRN (15:15)
[2020-02-05] MEDS ORDERED: HYDROmorphone 2 MG/ML VIAL IV PRN (15:15)
[2020-02-05] MEDS ORDERED: PROCHLORPERAZINE 10 MG/2 ML VIAL. IV PRN (15:15)
[2020-02-05] MEDS ORDERED: ONDANSETRON PF 4 MG/2 ML VIAL. IV PRN ×2 (15:15→15:30)
[2020-02-05] MEDS ORDERED: fentaNYL PF VIAL 100 MCG/2 ML VIAL IV PRN ×2 (15:15)
[2020-02-05] MEDS ORDERED: MORPHINE SULFATE 2 MG/ML VIAL. IV PRN (15:15)
--- NOTE | 2020-02-05 15:20 | PDOC2 ---
CONSULT Date of Consult Date of Consult DATE: 02/05/20 TIME: 15:19 History of Present Illness Reason for Visit: The patient is a 65 year old female who reported to the ER after sustaining a dog bite injury to her left lower leg. This happened approximately 2 hours ago and she notes associated pain. Past Medical History Past Medical History COPD Past Surgical History Past Surgical History Denies Social History Quit Current Medications Current Medications Current Medications Sodium Chloride 500 ml @ 500 mls/hr 1X ONCE IV Last administered on 02/05/20at 14:59; Start 02/05/20 at 14:45; Stop 02/05/20 at 15:44 Diphtheria/ Tetanus/Acell Pertussis (ADACEL TDap SYRINGE) 0.5 ml ONCE ONCE VAX IM Last administered on 02/05/20at 15:00; Start 02/05/20 at 14:45; Stop 02/05/20 at 14:50; Status DC Morphine Sulfate (Morphine Sulfate) 4 mg 1X ONCE IV Last administered on 02/05/20at 14:58; Start 02/05/20 at 14:45; Stop 02/05/20 at 14:50; Status DC Ondansetron HCl (Zofran) 4 mg 1X ONCE IV Last administered on 02/05/20at 14:57; Start 02/05/20 at 14:45; Stop 02/05/20 at 14:50; Status DC Ondansetron HCl (Zofran) 4 mg PRN Q6HRS PRN IV NAUSEA/VOMITING; Start 02/05/20 at 15:15; Stop 02/06/20 at 15:14 Fentanyl Citrate (Fentanyl 2ml Vial) 25 mcg PRN Q5MIN PRN IV MILD PAIN 1-3; Start 02/05/20 at 15:15; Stop 02/06/20 at 15:14 Fentanyl Citrate (Fentanyl 2ml Vial) 50 mcg PRN Q5MIN PRN IV MODERATE TO SEVERE PAIN; Start 02/05/20 at 15:15; Stop 02/06/20 at 15:14 Morphine Sulfate (Morphine Sulfate) 1 mg PRN Q10MIN PRN IV SEVERE PAIN 7-10; Start 02/05/20 at 15:15; Stop 02/06/20 at 15:14 Ringer's Solution 1,000 ml @ 30 mls/hr Q24H IV ; Start 02/05/20 at 15:09; Stop 02/06/20 at 03:08 Lidocaine HCl (Xylocaine-Mpf 1% 2ml Vial) 2 ml PRN 1X PRN ID PRIOR TO IV START; Start 02/05/20 at 15:15; Stop 02/06/20 at 15:14 Hydromorphone HCl (Dilaudid) 0.5 mg PRN Q10MIN PRN IV SEV PAIN, Second choice; Start 02/05/20 at 15:15; Stop 02/06/20 at 15:14 Prochlorperazine Edisylate (Compazine) 5 mg PACU PRN PRN IV NAUSEA, MRX1; Start 02/05/20 at 15:15; Stop 02/06/20 at 15:14 Cefazolin Sodium/ Dextrose 50 ml @ 100 mls/hr 1X ONCE IV ; Start 02/05/20 at 15:15; Stop 02/05/20 at 15:44 Active Scripts Active Sertraline Hcl 25 Mg Tablet 25 Mg PO DAILY 30 Days Prednisone 50 Mg Tablet 1 Tab PO DAILY Doxycycline Hyclate 100 Mg Tablet 100 Mg PO BID 7 Days Dicyclomine Hcl 10 Mg Capsule 1 Cap PO PRN Q6HRS PRN Ondansetron Odt (Ondansetron) 4 Mg Tab.rapdis 1 Tab PO PRN Q6-8HRS PRN Spiriva (Tiotropium Braddock) 18 Mcg Cap.w.dev 1 Cap IH DAILY Reported Budesonide 0.25 Mg/2 Ml Ampul.neb 1 Vial NEB BID Brovana (Arformoterol Tartrate) 15 Mcg/2 Ml Vial.neb 1 Vial NEB BID Levothyroxine Sodium 100 Mcg Tablet 1 Tab PO DAILY Dulera 200 Mcg/5 Mcg Inhaler (Mometasone/Formoterol) 13 Gm Hfa.aer.ad 1 Puff IH DAILY Proair Hfa Inhaler (Albuterol Sulfate) 8.5 Gm Hfa.aer.ad 2 Puff IH PRN Q4-6HRS Albuterol Sulfate Conc Neb Soln (Albuterol Sulfate) 2.5 Mg/0.5 Ml Vial.neb 1 Vial NEB Q6HRS Allergies Allergies: Coded Allergies: No Known Drug Allergies (Unverified , 09/09/16) ROS General: No: Chills, Night Sweats, Fatigue, Malaise, Appetite, Other PSYCHOLOGICAL ROS: No: Anxiety, Behavioral Disorder, Concentration difficultie, Decreased libido, Depression, Disorientation, Hallucinations, Hostility, Irritablity, Memory difficulties, Mood Swings, Obsessive thoughts, Physical abuse, Sexual abuse, Sleep disturbances, Suicidal ideation, Other Eyes: No Blurry vision, No Decreased vision, No Double vision, No Dry eyes, No Excessive tearing, No Eye Pain, No Itchy Eyes, No Loss of vision, No Photoph obia, No Scotomata, No Uses contacts, No Uses glasses, No Other Respiratory: YES: Cough (chronic) Cardiovascular: No Chest Pain, No Palpitations, No Orthopnea, No Paroxysmal Noc. Dyspnea, No Edema, No Lt Headedness, No Other Gastrointestinal: No Nausea, No Vomiting, No Abdominal Pain, No Diarrhea, No Constipation, No Melena, No Hematochezia, No Other Genitourinary: No Dysuria, No Frequency, No Incontinence, No Hematuria, No Retention, No Discharge, No Urgency, No Pain, No Flank Pain, No Other, No , No , No , No , No , No , No Musculoskeletal: No Gait Disturbance, No Joint Pain, No Joint Stiffness, No Joint Swelling, No Muscle Pain, No Muscular Weakness, No Pain In:, No Swelling In:, No Other Neurological: No Behavorial Changes, No Bowel/Bladder ControlChng, No Confusion, No Dizziness, No Gait Disturbance, No Headaches, No Impaired Coord/balance, No Memory Loss, No Numbness/Tingling, No Seizures, No Speech Problems, No Tremors, No Visual Changes, No Weakness, No Other Skin: No Dry Skin, No Eczema, No Hair Changes, No Lumps, No Mole Changes, No Mottling, No Nail Changes, No Pruritus, No Rash, No Skin Lesion Changes, No Other, No Acne Physical Exam General: Alert, Oriented X3, Cooperative HEENT: Atraumatic Lungs: Clear to auscultation Heart: Regular rate Abdomen: Soft Extremities: Other (left lower leg with medial irregular curvilinear laceration, lateral puncture wounds, to depth of deep subcutaneous tissue, no active bleeding, distal pulses intact) Vitals VITALS Vital Signs Date Time Temp Pulse Resp B/P (MAP) Pulse Ox O2 Delivery O2 Flow Rate FiO2 02/05/20 14:58 20 97 Room Air 02/05/20 14:18 98.1 141 114/85 (95) 98.1 Assessment/Plan Assessment/Plan L lower leg dog bite, plan to OR for washout, debridement. HERMANN GARCIA MD Feb 05, 2020 15:20
[2020-02-05] MEDS ORDERED: DEXAMETHASONE SOD PHOS 4 MG/ML VIAL ONE (15:22)
[2020-02-05] MEDS ORDERED: FAMOTIDINE 20 MG/2 ML VIAL ONE (15:22)
[2020-02-05] MEDS ORDERED: ONDANSETRON PF 4 MG/2 ML VIAL. ONE (15:22)
[2020-02-05] MEDS ORDERED: PROPOFOL 20 ML IV ONE (15:22)
[2020-02-05] MEDS ORDERED: fentaNYL PF VIAL 100 MCG/2 ML VIAL ONE (15:22)
[2020-02-05] MEDS ORDERED: LIDOCAINE 2% PF 5 ML VIAL. ONE (15:23)
--- NOTE | 2020-02-05 15:27 | RAD ---
Examination: TIBIA FIBULA LEFT, ANKLE LEFT 3V History: Dog bite to the left lower extremity Comparison/Correlation: None Findings: 3 images of the left ankle and 2 images of the left tibia and fibula were obtained. Soft tissue gas is present circumferentially about the distal tibial shaft level with findings of laceration injury. Ankle joint mortise is adequate. Knee joint is unremarkable on the frontal and lateral projections provided. No fracture or bone destruction. No radiopaque foreign body. Impression: Soft tissue lacerations about the distal tibial level corresponding to reported dog bite history. Electronically signed by: Kushal Hill MD (02/05/2020 3:24 PM) [id number]
[2020-02-05] MEDS ORDERED: MORPHINE SULFATE 4 MG/ML VIAL. IV PRN (15:30)
[2020-02-05] MEDS ORDERED: IV NORMAL SALINE 1000ML BAG 1,000 ML IV ONE (15:30)
[2020-02-05 15:34] LABS: BASO # 0.1 x10^3/uL (0.0-0.2); BASO % 1 % (0-3); EOS # 0.1 x10^3/uL (0.0-0.7); EOS % 1 % (0-3); HEMOGLOBIN 14.1 g/dL (12.0-15.5); LYMPH # 1.8 x10^3/uL (1.0-4.8); LYMPH % 18 % (24-48); MEAN CORPUSCULAR HEMOGLOBIN 27 pg (25-35); MEAN CORPUSCULAR HGB CONC 33 g/dL (31-37); MEAN CORPUSCULAR VOLUME 82 fL (79-100); MONO # 0.8 x10^3/uL (0.0-1.1); MONO % 8 % (0-9); NEUT # 7.5 x10^3/uL (1.8-7.7); NEUT % 72 % (31-73); PLATELET COUNT 343 x10^3/uL (140-400); RED BLOOD COUNT 5.25 x10^6/uL (3.50-5.40); RED CELL DISTRIBUTION WIDTH 14.3 % (11.5-14.5); WHITE BLOOD COUNT 10.3 x10^3/uL (4.0-11.0)
[2020-02-05 15:43] LABS: CALCIUM 9.7 mg/dL (8.5-10.1); CREATININE 0.8 mg/dL (0.6-1.0); GFR 71.8; POTASSIUM 4.2 mmol/L (3.5-5.1)
[2020-02-05] MEDS ORDERED: LIDOCAINE 1%/EPI 1:100,000 20 ML VIAL. ONE (15:44)
[2020-02-05 15:49] LABS: ALBUMIN 3.5 g/dL (3.4-5.0); ALBUMIN/GLOBULIN RATIO 0.8 (1.0-1.7); TOTAL BILIRUBIN 0.3 mg/dL (0.2-1.0); TOTAL PROTEIN 7.7 g/dL (6.4-8.2)
[2020-02-05] MEDS ORDERED: SUCCINYLCHOLINE 200 MG/10 ML VIAL. ONE (15:49)
[2020-02-05] MEDS ORDERED: ePHEDrine PF IN SALINE 50 MG/10 ML SYRINGE. IV ONE (16:27)
[2020-02-05] MEDS ORDERED: METOCLOPRAMIDE HCL 10 MG/2 ML VIAL. ONE (16:29)
[2020-02-05] MEDS ORDERED: NEOMY/BACITR/POLYMYXIN OINT PACKET. TP ONE ×8 (16:43→16:47)
[2020-02-05] MEDS ORDERED: DESFLURANE 61 TO 120 MINUTES IH ONE (16:50)
[2020-02-05] MEDS ORDERED: HYDROcodone/APAP 5/325MG 1 TAB TABLET PO PRN ×2 (17:00→17:15)
--- NOTE | 2020-02-05 17:00 | PDOC4 ---
Operative Note Operative Note Operative Note: Preoperative Diagnosis: Left lower extremity dog bite Postoperative Diagnosis: Same Procedure: Debridement, washout, loose closure of left lower extremity laceration (debridement of skin, less than 9 cm2) Surgeon: Hernandez Anesthesia: General EBL: 10 mL Specimen: None Drains: None Complications: None Indication: The patient is a 65-year-old female reported to the emergency department after sustaining a bite to the distal aspect of her left lower leg. On examination there is a complex wound with several puncture holes. The plan is for operative debridement, washout and loose closure. The risks of surgery were discussed with the patient which include bleeding, infection, pain, scar tissue, anesthetic risk, potential need for additional surgery procedure. She understands and would like to proceed. Description: The patient was taken to the operating room and placed supine on the operating table. General anesthesia was performed. The left lower leg was prepped with Betadine and draped in a standard surgical manner. Inspection showed a curved irregular laceration of the skin extending into the deep subcutaneous tissue. There was no tendon or muscle damage. There was no significant active bleeding or evidence of a foreign body. Laterally there were 2 separate puncture holes that extended well into the deep subcutaneous tissue. The medial wound was washed out thoroughly with sterile saline. Some of the subcutaneous tissue was approximated with interrupted 3-0 Vicryl. The skin was loosely closed with a few sutures of 4-0 nylon. Areas were left open to allow for some drainage. Laterally some of the devitalized skin was sharply debrided. The total skin debridement was less than 9 cm. Both puncture wounds were thoroughly washed out with sterile saline and left open to drain. The wounds were dressed with antibiotic ointment and sterile gauze. A Kerlix dressing was then applied. The patient tolerated the procedure well and was sent to recovery room in stable condition. At the end of the case all counts were correct. HERMANN GARCIA MD Feb 05, 2020 17:00
[2020-02-05] MEDS ORDERED: LEVO100T5 PO ×2 (18:22)
[2020-02-05] MEDS ORDERED: PARO30TA3 PO (18:22)
[2020-02-05] MEDS ORDERED: LEVO112T4 PO ×3 (18:22)
[2020-02-05] MEDS ORDERED: VANCOMYCIN 1.5 GM in IV NORMAL SALINE 500ML BAG 500 ML IV ONE (20:15)
[2020-02-05] MEDS ORDERED: IPRATRPIUM/ALBUTEROL 0.5/2.5MG 3 ML NEBU. NEB PRN (20:15)
[2020-02-05] MEDS ORDERED: VANCOMYCIN PER PHARMACY MC PRN (20:30)
[2020-02-05] MEDS ORDERED: ALBUTEROL SULFATE 2.5 MG/3 ML NEBU. NEB SCH (22:00)
[2020-02-06] MEDS: PIPERACILLIN/TAZOBACTAM 3.375 GM in IV NORMAL SALINE 50ML 50 ML IV SCH ×2 (00:45→06:06)
--- NOTE | 2020-02-06 01:29 | NUR ---
Pharmacy Vancomycin Dosing Note S:Consulted to monitor and dose vancomycin started 02/05/20. O:SERVANDO PATEL is a 65 year old F with DOG BITE . Height: 5 feet, 3.5 inches Weight: 69.1 kg [place] Body Weight: 53.55 Adjusted Body Weight: 59.73 Dosing Weight: Actual Other Antibiotics: ZOSYN 3.375 GM Q6H LABS: Last BUN: 22 Last Creatinine: 0.8 Creatinine Clearance: 52 mL/min Last WBC: 10.3 Last Procalcitonin: Tmax (past 24 hours): Microbiology: I/O: Drug Levels: Last level: on at Last dose given 02/05/20 at 2130 Vancomycin Dosing: Loading Dose: 1500 mg x1 Dosing Weight: Actual Target Trough: 10-20 A: Based on: WT AND CRCL P: 1. Begin Vancomycin 1000 mg IV q18h 2. Follow up Trough level on 02/07/20 at 0930 3. Pharmacy will continue to monitor, follow and adjust therapy as needed. HILARIA FITZPATRICK RPH, 02/06/20 0129 Signed: 02/06/20 at 0129 by HILARIA FITZPATRICK RPH PHA
[2020-02-06] MEDS ORDERED: ALBUTEROL SULFATE 2.5 MG/3 ML NEBU. NEB PRN (01:30)
[2020-02-06 03:43] VITALS: BP 136/77
[2020-02-06 07:00] VITALS: BP 112/66
[2020-02-06] MEDS ORDERED: LEVOTHYROXINE 112 MCG TABLET PO SCH (08:00)
[2020-02-06] MEDS ORDERED: BUDESONIDE 0.5 MG/2 ML NEBU. NEB SCH (08:00)
[2020-02-06] MEDS ORDERED: IPRATRPIUM/ALBUTEROL 0.5/2.5MG 3 ML NEBU. NEB SCH (08:00)
--- NOTE | 2020-02-06 08:39 | PDOC ---
SURGICAL PROGRESS NOTE Subjective no pain ambulating ok hoping to go home Vital Signs Vital Signs Date Time Temp Pulse Resp B/P (MAP) Pulse Ox O2 Delivery O2 Flow Rate FiO2 02/06/20 07:27 92 Room Air 02/06/20 07:00 98.2 65 22 112/66 (81) 98.2 02/05/20 17:13 10 I&O Intake and Output 02/06/20 07:00 Intake Total 1550 ml Output Total 10 ml Balance 1540 ml Intake Oral 200 ml IV Total 1350 ml Output Estimated Blood Loss 10 ml # Voids 4 General: Alert, Oriented X3, Cooperative Skin: Other (wound viewed, loosely sutured, some drainage ) Labs Laboratory Tests Test 02/05/20 14:31 White Blood Count 10.3 x10^3/uL (4.0-11.0) Red Blood Count 5.25 x10^6/uL (3.50-5.40) Hemoglobin 14.1 g/dL (12.0-15.5) Hematocrit 43.0 % (36.0-47.0) Mean Corpuscular Volume 82 fL (79-100) Mean Corpuscular Hemoglobin 27 pg (25-35) Mean Corpuscular Hemoglobin Concent 33 g/dL (31-37) Red Cell Distribution Width 14.3 % (11.5-14.5) Platelet Count 343 x10^3/uL (140-400) Neutrophils (%) (Auto) 72 % (31-73) Lymphocytes (%) (Auto) 18 % (24-48) Monocytes (%) (Auto) 8 % (0-9) Eosinophils (%) (Auto) 1 % (0-3) Basophils (%) (Auto) 1 % (0-3) Neutrophils # (Auto) 7.5 x10^3/uL (1.8-7.7) Lymphocytes # (Auto) 1.8 x10^3/uL (1.0-4.8) Monocytes # (Auto) 0.8 x10^3/uL (0.0-1.1) Eosinophils # (Auto) 0.1 x10^3/uL (0.0-0.7) Basophils # (Auto) 0.1 x10^3/uL (0.0-0.2) Sodium Level 139 mmol/L (136-145) Potassium Level 4.2 mmol/L (3.5-5.1) Chloride Level 103 mmol/L (98-107) Carbon Dioxide Level 24 mmol/L (21-32) Anion Gap 12 (6-14) Blood Urea Nitrogen 22 mg/dL (7-20) Creatinine 0.8 mg/dL (0.6-1.0) Estimated GFR (Cockcroft-Gault) 71.8 BUN/Creatinine Ratio 28 (6-20) Glucose Level 149 mg/dL (70-99) Calcium Level 9.7 mg/dL (8.5-10.1) Total Bilirubin 0.3 mg/dL (0.2-1.0) Aspartate Amino Transf (AST/SGOT) 20 U/L (15-37) Alanine Aminotransferase (ALT/SGPT) 27 U/L (14-59) Alkaline Phosphatase 106 U/L (46-116) Total Protein 7.7 g/dL (6.4-8.2) Albumin 3.5 g/dL (3.4-5.0) Albumin/Globulin Ratio 0.8 (1.0-1.7) Laboratory Tests Test 02/05/20 14:31 White Blood Count 10.3 x10^3/uL (4.0-11.0) Red Blood Count 5.25 x10^6/uL (3.50-5.40) Hemoglobin 14.1 g/dL (12.0-15.5) Hematocrit 43.0 % (36.0-47.0) Mean Corpuscular Volume 82 fL (79-100) Mean Corpuscular Hemoglobin 27 pg (25-35) Mean Corpuscular Hemoglobin Concent 33 g/dL (31-37) Red Cell Distribution Width 14.3 % (11.5-14.5) Platelet Count 343 x10^3/uL (140-400) Neutrophils (%) (Auto) 72 % (31-73) Lymphocytes (%) (Auto) 18 % (24-48) Monocytes (%) (Auto) 8 % (0-9) Eosinophils (%) (Auto) 1 % (0-3) Basophils (%) (Auto) 1 % (0-3) Neutrophils # (Auto) 7.5 x10^3/uL (1.8-7.7) Lymphocytes # (Auto) 1.8 x10^3/uL (1.0-4.8) Monocytes # (Auto) 0.8 x10^3/uL (0.0-1.1) Eosinophils # (Auto) 0.1 x10^3/uL (0.0-0.7) Basophils # (Auto) 0.1 x10^3/uL (0.0-0.2) Sodium Level 139 mmol/L (136-145) Potassium Level 4.2 mmol/L (3.5-5.1) Chloride Level 103 mmol/L (98-107) Carbon Dioxide Level 24 mmol/L (21-32) Anion Gap 12 (6-14) Blood Urea Nitrogen 22 mg/dL (7-20) Creatinine 0.8 mg/dL (0.6-1.0) Estimated GFR (Cockcroft-Gault) 71.8 BUN/Creatinine Ratio 28 (6-20) Glucose Level 149 mg/dL (70-99) Calcium Level 9.7 mg/dL (8.5-10.1) Total Bilirubin 0.3 mg/dL (0.2-1.0) Aspartate Amino Transf (AST/SGOT) 20 U/L (15-37) Alanine Aminotransferase (ALT/SGPT) 27 U/L (14-59) Alkaline Phosphatase 106 U/L (46-116) Total Protein 7.7 g/dL (6.4-8.2) Albumin 3.5 g/dL (3.4-5.0) Albumin/Globulin Ratio 0.8 (1.0-1.7) Problem List Problems Medical Problems: (1) Dog bite of multiple sites of left lower extremity Status: Acute (2) Need for DTaP vaccination Status: Acute (3) Open wound of left lower leg due to dog bite Status: Acute Assessment/Plan s/p debridement dry dressing daily abx per ID FU Dr Ng 1 week KARON BEGUM [employer]PUTY [employer]ER[employer] GENERALIST Feb 06, 2020 08:39
[2020-02-06] MEDS ORDERED: PARoxetine 10 MG TABLET PO SCH (09:00)
[2020-02-06] MEDS ORDERED: NON FORMULARY ITEM (Mometasone/Formoterol (Dulera 200 Mcg/5 Mcg Inhaler) 1 PUFF) IH SCH (09:00)
[2020-02-06] MEDS ORDERED: AMOXICILLIN/K CLAV 875/125MG TABLET. PO SCH (09:00)
[2020-02-06] MEDS ORDERED: LACTOBACILLUS RHAMNOSUS GG 1 CAPSULE. PO SCH (09:00)
--- NOTE | 2020-02-06 09:02 | PDOC ---
Infectious Disease Note Vital Sign Vital Signs Vital Signs Date Time Temp Pulse Resp B/P (MAP) Pulse Ox O2 Delivery O2 Flow Rate FiO2 02/06/20 07:27 92 Room Air 02/06/20 07:00 98.2 65 22 112/66 (81) 98.2 02/05/20 17:13 10 Labs Lab Laboratory Tests Test 02/05/20 14:31 White Blood Count 10.3 x10^3/uL (4.0-11.0) Red Blood Count 5.25 x10^6/uL (3.50-5.40) Hemoglobin 14.1 g/dL (12.0-15.5) Hematocrit 43.0 % (36.0-47.0) Mean Corpuscular Volume 82 fL (79-100) Mean Corpuscular Hemoglobin 27 pg (25-35) Mean Corpuscular Hemoglobin Concent 33 g/dL (31-37) Red Cell Distribution Width 14.3 % (11.5-14.5) Platelet Count 343 x10^3/uL (140-400) Neutrophils (%) (Auto) 72 % (31-73) Lymphocytes (%) (Auto) 18 % (24-48) Monocytes (%) (Auto) 8 % (0-9) Eosinophils (%) (Auto) 1 % (0-3) Basophils (%) (Auto) 1 % (0-3) Neutrophils # (Auto) 7.5 x10^3/uL (1.8-7.7) Lymphocytes # (Auto) 1.8 x10^3/uL (1.0-4.8) Monocytes # (Auto) 0.8 x10^3/uL (0.0-1.1) Eosinophils # (Auto) 0.1 x10^3/uL (0.0-0.7) Basophils # (Auto) 0.1 x10^3/uL (0.0-0.2) Sodium Level 139 mmol/L (136-145) Potassium Level 4.2 mmol/L (3.5-5.1) Chloride Level 103 mmol/L (98-107) Carbon Dioxide Level 24 mmol/L (21-32) Anion Gap 12 (6-14) Blood Urea Nitrogen 22 mg/dL (7-20) Creatinine 0.8 mg/dL (0.6-1.0) Estimated GFR (Cockcroft-Gault) 71.8 BUN/Creatinine Ratio 28 (6-20) Glucose Level 149 mg/dL (70-99) Calcium Level 9.7 mg/dL (8.5-10.1) Total Bilirubin 0.3 mg/dL (0.2-1.0) Aspartate Amino Transf (AST/SGOT) 20 U/L (15-37) Alanine Aminotransferase (ALT/SGPT) 27 U/L (14-59) Alkaline Phosphatase 106 U/L (46-116) Total Protein 7.7 g/dL (6.4-8.2) Albumin 3.5 g/dL (3.4-5.0) Albumin/Globulin Ratio 0.8 (1.0-1.7) Micro Findings: 3 images of the left ankle and 2 images of the left tibia and fibula were obtained. Soft tissue gas is present circumferentially about the distal tibial shaft level with findings of laceration injury. Ankle joint mortise is adequate. Knee joint is unremarkable on the frontal and lateral projections provided. No fracture or bone destruction. No radiopaque foreign body. Impression: Soft tissue lacerations about the distal tibial level corresponding to reported dog bite history. Objective Assessment S/p Dog bite 02/04 S/p I and D 02/04 ? COPD exacerbation started Azithromycin 02/04 Hypothyroidism No H/o skin infections or MRSA infection or exposure Plan Plan of Care Received Tetanus 02/04 ok to d/c home on augmentin for 7days Complete zpak as directed Wound care per Gen surg If worsens needs to return F/u with Primary and with Gen surgery D/w nursing and Gen Surg [facility] Thank you # [id number] SANGITA PEARCE MD Feb 06, 2020 09:02
[2020-02-06] MEDS ORDERED: HYDR-2761 PO (09:13)
--- NOTE | 2020-02-06 09:13 | NUR ---
SW following. Discussed with RN, pt from home, currently on IV abx, however will likely be switched to oral abx. RN advised no SW needs and anticipates pt will discharge home today with self care. Addendum: 02/06/20 at 1150 by MICKY ZAVALA SW Pt discharging home with self care and oral abx. SATNAM advised no SW needs.
--- NOTE | 2020-02-06 09:52 | PDOC1 ---
History and Physical Date of Admission Date of Admission DATE: 02/05/20 TIME: 1400 Identification/Chief Complaint Chief Complaint Dog bite laceration of left leg Source Source: Patient History of Present Illness History of Present Illness Ms. Laura Cuenca she is a 65-year-old female patient Dr. Valadez. She had 3 dogs 1 pitbull and she also had a quite a new dog recently her granddaughter misti rosario. The dogs were having a fight bulldog is pitbull and she went in between to break their fight. 1 of the dogs nino rosario accidentally bit her left leg and she had a puncture wounds. This happened yesterday and she came to the emergency room. She was seen in the ER as well as surgery was consulted and the patient was taken to surgery because of extensive laceration and function wounds. Patient had a surgery cleaning of the wounds had intermittent tessy placed patient was given IV antibiotics was admitted overnight. Patient was seen by infectious disease was given Vanco and Zosyn while she was in the hospital transition to Augmentin and she was discharged home to be followed as outpatient. Patient was given DTaP in the emergency room. And all the dogs were up-to-date on vaccinations including rabies. Past Medical History Pulmonary: COPD Endocrine: Hypothyroidism Past Surgical History Past Surgical History: No pertinent history Family History Family History: High Cholestrol Social History Smoke: No Current Problem List Problem List Problems Medical Problems: (1) Dog bite of multiple sites of left lower extremity Status: Acute (2) Need for DTaP vaccination Status: Acute (3) Open wound of left lower leg due to dog bite Status: Acute Current Medications Current Medications Current Medications Sodium Chloride 500 ml @ 500 mls/hr 1X ONCE IV Last administered on 02/05/20at 14:59; Start 02/05/20 at 14:45; Stop 02/05/20 at 15:44; Status DC Diphtheria/ Tetanus/Acell Pertussis (ADACEL TDap SYRINGE) 0.5 ml ONCE ONCE VAX IM Last administered on 02/05/20at 15:00; Start 02/05/20 at 14:45; Stop 02/05/20 at 14:50; Status DC Morphine Sulfate (Morphine Sulfate) 4 mg 1X ONCE IV Last administered on 02/05/20at 14:58; Start 02/05/20 at 14:45; Stop 02/05/20 at 14:50; Status DC Ondansetron HCl (Zofran) 4 mg 1X ONCE IV Last administered on 02/05/20at 14:57; Start 02/05/20 at 14:45; Stop 02/05/20 at 14:50; Status DC Ondansetron HCl (Zofran) 4 mg PRN Q6HRS PRN IV NAUSEA/VOMITING; Start 02/05/20 at 15:15; Stop 02/06/20 at 15:14 Fentanyl Citrate (Fentanyl 2ml Vial) 25 mcg PRN Q5MIN PRN IV MILD PAIN 1-3; Start 02/05/20 at 15:15; Stop 02/06/20 at 15:14 Fentanyl Citrate (Fentanyl 2ml Vial) 50 mcg PRN Q5MIN PRN IV MODERATE TO SEVERE PAIN; Start 02/05/20 at 15:15; Stop 02/06/20 at 15:14 Morphine Sulfate (Morphine Sulfate) 1 mg PRN Q10MIN PRN IV SEVERE PAIN 7-10; Start 02/05/20 at 15:15; Stop 02/06/20 at 15:14 Ringer's Solution 1,000 ml @ 30 mls/hr Q24H IV Last administered on 02/05/20at 16:00; Start 02/05/20 at 15:09; Stop 02/06/20 at 03:08; Status DC Lidocaine HCl (Xylocaine-Mpf 1% 2ml Vial) 2 ml PRN 1X PRN ID PRIOR TO IV START; Start 02/05/20 at 15:15; Stop 02/06/20 at 15:14 Hydromorphone HCl (Dilaudid) 0.5 mg PRN Q10MIN PRN IV SEV PAIN, Second choice; Start 02/05/20 at 15:15; Stop 02/06/20 at 15:14 Prochlorperazine Edisylate (Compazine) 5 mg PACU PRN PRN IV NAUSEA, MRX1; Start 02/05/20 at 15:15; Stop 02/06/20 at 15:14 Cefazolin Sodium/ Dextrose 50 ml @ 100 mls/hr 1X ONCE IV Last administered on 02/05/20at 15:34; Start 02/05/20 at 15:15; Stop 02/05/20 at 15:44; Status DC Ondansetron HCl (Zofran) 4 mg PRN Q8HRS PRN IV NAUSEA/VOMITING; Start 02/05/20 at 15:30; Stop 02/06/20 at 15:29 Morphine Sulfate (Morphine Sulfate) 4 mg PRN Q2HR PRN IV PAIN; Start 02/05/20 at 15:30; Stop 02/06/20 at 15:29 Sodium Chloride 1,000 ml @ 125 mls/hr 1X ONCE IV ; Start 02/05/20 at 15:30; Stop 02/05/20 at 23:29; Status DC Acetaminophen/ Hydrocodone Bitart (Lortab 5/325) 1 tab PRN Q4HRS PRN PO MODERATE PAIN; Start 02/05/20 at 17:00 Acetaminophen/ Hydrocodone Bitart (Lortab 5/325) 2 tab PRN Q4HRS PRN PO SEVERE PAIN; Start 02/05/20 at 17:15 Neomycin/ Polymyxin/ Bacitracin (Triple Antibiotic Ointment) 8 pkt STK-MED ONCE TP Last administered on 02/05/20at 16:45; Start 02/05/20 at 16:45; Stop 02/05/20 at 17:05; Status DC Levothyroxine Sodium (Synthroid) 100 mcg QM PO ; Start 02/09/20 at 16:00; Status UNV Albuterol Sulfate (Ventolin Neb Soln) 2.5 mg Q4HRS W/A NEB Last administered on 02/05/20at 21:22; Start 02/05/20 at 22:00; Stop 02/06/20 at 01:19; Status DC Non-Formulary Medication (Mometasone/ Formoterol (Dulera 200 Mcg/5 Mcg Inhaler)) 1 puff DAILY IH ; Start 02/06/20 at 09:00; Status UNV Paroxetine HCl (Paxil) 30 mg DAILY PO Last administered on 02/06/20at 08:19; Start 02/06/20 at 09:00 Piperacillin Sod/ Tazobactam Sod 3.375 gm/Sodium Chloride 50 ml @ 100 mls/hr Q6HRS IV Last administered on 02/06/20at 06:06; Start 02/06/20 at 00:00; Stop 02/06/20 at 08:54; Status DC Vancomycin HCl 1.5 gm/Sodium Chloride 500 ml @ 250 mls/hr 1X ONCE IV Last administered on 02/05/20at 21:22; Start 02/05/20 at 20:15; Stop 02/05/20 at 22:14; Status DC Albuterol/ Ipratropium (Duoneb) 3 ml RTQID NEB Last administered on 02/06/20at 07:26; Start 02/06/20 at 08:00 Albuterol/ Ipratropium (Duoneb) 3 ml RTQID PRN NEB WHEEZING; Start 02/05/20 at 20:15; Status Cancel Budesonide (Pulmicort) 0.5 mg RTBID NEB Last administered on 02/06/20at 07:26; Start 02/06/20 at 08:00 Levothyroxine Sodium (Synthroid) 100 mcg QM@0600 PO ; Start 02/09/20 at 06:00 Levothyroxine Sodium (Synthroid) 112 mcg QSASU@0600 PO ; Start 02/07/20 at 06:00 Levothyroxine Sodium (Synthroid) 100 mcg QTU@0600 PO ; Start 02/10/20 at 06:00 Levothyroxine Sodium (Synthroid) 100 mcg QWE@0600 PO ; Start 02/11/20 at 06:00 Levothyroxine Sodium (Synthroid) 112 mcg QTH@0600 PO ; Start 02/12/20 at 06:00 Levothyroxine Sodium (Synthroid) 112 mcg QFR@0600 PO Last administered on 02/06/20at 08:19; Start 02/06/20 at 08:00 Vancomycin HCl (Vanco Per Pharmacy) 1 each PRN DAILY PRN MC SEE COMMENTS Last administered on 02/06/20at 01:29; Start 02/05/20 at 20:30; Stop 02/06/20 at 08:54; Status DC Albuterol Sulfate (Ventolin Neb Soln) 2.5 mg PRN Q4HRS PRN NEB SHORTNESS OF BREATH Last administered on 02/06/20at 04:08; Start 02/06/20 at 01:30 Vancomycin HCl 1 gm/Sodium Chloride 250 ml @ 250 mls/hr Q18H IV ; Start 02/06/20 at 16:00; Stop 02/06/20 at 08:54; Status DC Vancomycin HCl (Vancomycin Trough Level) 1 each 1X ONCE MC ; Start 02/07/20 at 09:30; Stop 02/06/20 at 08:54; Status DC Lactobacillus Rhamnosus (Culturelle) 1 cap BID PO Last administered on 02/06/20at 08:18; Start 02/06/20 at 09:00 Amoxicillin/ Clavulanate Potassium (Augmentin 875/ 125mg) 1 tab BID PO ; Start 02/06/20 at 09:00 Active Scripts Active Reported Paroxetine Hcl 30 Mg Tablet 1 Tab PO DAILY Levothyroxine Sodium 112 Mcg Tablet 1 Tab PO QSASU Levothyroxine Sodium 112 Mcg Tablet 1 Tab PO QFR Levothyroxine Sodium 112 Mcg Tablet 1 Tab PO QTH Levothyroxine Sodium 100 Mcg Tablet 1 Tab PO QWE Levothyroxine Sodium 100 Mcg Tablet 1 Tab PO QTU Levothyroxine Sodium 100 Mcg Tablet 1 Tab PO QM Dulera 200 Mcg/5 Mcg Inhaler (Mometasone/Formoterol) 13 Gm Hfa.aer.ad 1 Puff IH DAILY Albuterol Sulfate Conc Neb Soln (Albuterol Sulfate) 2.5 Mg/0.5 Ml Vial.neb 1 Vial NEB Q4HRS Allergies Allergies: Coded Allergies: No Known Drug Allergies (Unverified , 09/09/16) ROS Review of System Denies chest pain shortness of breath patient has a history of COPD in the past Physical Exam General: Alert, Oriented X3 HEENT: PERRLA Heart: S1S2, RRR Cardiovascular: S1, S2 Breasts: Normal Abdomen: Normal bowel sounds Rectal Exam: not examined Extremities: Other (Patient had dressings on the left leg had surgery yesterday and already seen by infectious disease and surgery this morning did not examine at this time please look at the pictures) Neuro: Normal gait, Normal speech, Strength at 5/5 X4 ext, Normal tone, Sensation intact, Cranial nerves 3-12 NL, Reflexes 2+ Psych/Mental Status: Mental status NL, Mood NL Vitals Vitals Vital Signs Date Time Temp Pulse Resp B/P (MAP) Pulse Ox O2 Delivery O2 Flow Rate FiO2 02/06/20 07:27 92 Room Air 02/06/20 07:00 98.2 65 22 112/66 (81) 98.2 02/05/20 17:13 10 Labs Labs Laboratory Tests Test 02/05/20 14:31 White Blood Count 10.3 x10^3/uL (4.0-11.0) Red Blood Count 5.25 x10^6/uL (3.50-5.40) Hemoglobin 14.1 g/dL (12.0-15.5) Hematocrit 43.0 % (36.0-47.0) Mean Corpuscular Volume 82 fL (79-100) Mean Corpuscular Hemoglobin 27 pg (25-35) Mean Corpuscular Hemoglobin Concent 33 g/dL (31-37) Red Cell Distribution Width 14.3 % (11.5-14.5) Platelet Count 343 x10^3/uL (140-400) Neutrophils (%) (Auto) 72 % (31-73) Lymphocytes (%) (Auto) 18 % (24-48) Monocytes (%) (Auto) 8 % (0-9) Eosinophils (%) (Auto) 1 % (0-3) Basophils (%) (Auto) 1 % (0-3) Neutrophils # (Auto) 7.5 x10^3/uL (1.8-7.7) Lymphocytes # (Auto) 1.8 x10^3/uL (1.0-4.8) Monocytes # (Auto) 0.8 x10^3/uL (0.0-1.1) Eosinophils # (Auto) 0.1 x10^3/uL (0.0-0.7) Basophils # (Auto) 0.1 x10^3/uL (0.0-0.2) Sodium Level 139 mmol/L (136-145) Potassium Level 4.2 mmol/L (3.5-5.1) Chloride Level 103 mmol/L (98-107) Carbon Dioxide Level 24 mmol/L (21-32) Anion Gap 12 (6-14) Blood Urea Nitrogen 22 mg/dL (7-20) Creatinine 0.8 mg/dL (0.6-1.0) Estimated GFR (Cockcroft-Gault) 71.8 BUN/Creatinine Ratio 28 (6-20) Glucose Level 149 mg/dL (70-99) Calcium Level 9.7 mg/dL (8.5-10.1) Total Bilirubin 0.3 mg/dL (0.2-1.0) Aspartate Amino Transf (AST/SGOT) 20 U/L (15-37) Alanine Aminotransferase (ALT/SGPT) 27 U/L (14-59) Alkaline Phosphatase 106 U/L (46-116) Total Protein 7.7 g/dL (6.4-8.2) Albumin 3.5 g/dL (3.4-5.0) Albumin/Globulin Ratio 0.8 (1.0-1.7) Laboratory Tests Test 02/05/20 14:31 White Blood Count 10.3 x10^3/uL (4.0-11.0) Red Blood Count 5.25 x10^6/uL (3.50-5.40) Hemoglobin 14.1 g/dL (12.0-15.5) Hematocrit 43.0 % (36.0-47.0) Mean Corpuscular Volume 82 fL (79-100) Mean Corpuscular Hemoglobin 27 pg (25-35) Mean Corpuscular Hemoglobin Concent 33 g/dL (31-37) Red Cell Distribution Width 14.3 % (11.5-14.5) Platelet Count 343 x10^3/uL (140-400) Neutrophils (%) (Auto) 72 % (31-73) Lymphocytes (%) (Auto) 18 % (24-48) Monocytes (%) (Auto) 8 % (0-9) Eosinophils (%) (Auto) 1 % (0-3) Basophils (%) (Auto) 1 % (0-3) Neutrophils # (Auto) 7.5 x10^3/uL (1.8-7.7) Lymphocytes # (Auto) 1.8 x10^3/uL (1.0-4.8) Monocytes # (Auto) 0.8 x10^3/uL (0.0-1.1) Eosinophils # (Auto) 0.1 x10^3/uL (0.0-0.7) Basophils # (Auto) 0.1 x10^3/uL (0.0-0.2) Sodium Level 139 mmol/L (136-145) Potassium Level 4.2 mmol/L (3.5-5.1) Chloride Level 103 mmol/L (98-107) Carbon Dioxide Level 24 mmol/L (21-32) Anion Gap 12 (6-14) Blood Urea Nitrogen 22 mg/dL (7-20) Creatinine 0.8 mg/dL (0.6-1.0) Estimated GFR (Cockcroft-Gault) 71.8 BUN/Creatinine Ratio 28 (6-20) Glucose Level 149 mg/dL (70-99) Calcium Level 9.7 mg/dL (8.5-10.1) Total Bilirubin 0.3 mg/dL (0.2-1.0) Aspartate Amino Transf (AST/SGOT) 20 U/L (15-37) Alanine Aminotransferase (ALT/SGPT) 27 U/L (14-59) Alkaline Phosphatase 106 U/L (46-116) Total Protein 7.7 g/dL (6.4-8.2) Albumin 3.5 g/dL (3.4-5.0) Albumin/Globulin Ratio 0.8 (1.0-1.7) VTE Prophylaxis Ordered VTE Prophylaxis Devices: Yes VTE Pharmacological Prophylaxi: No Assessment/Plan Assessment/Plan Impression: 1. Laceration of the left leg from accidental dog bite, bull terrier. 2. Hypothyroidism. 3. COPD history. Plan: 1. Patient was taken to surgery for surgical debridement and primary closure with interrupted tessy and cleaning of the wound. 2. Patient was given Tdap. 3. ID was consulted recommended discharged home with Augmentin for 7 days. 4. Lortab for pain as needed. 5. Patient's dogs are all up-to-date including rabies vaccination. 6. Patient will be discharged home today follow-up with the PCP in 1 week surgery and 10 days Hemodynamically unstable?: Yes Respiratory Distress?: No Serious Diagnosis?: Yes Justification for admission: dogbite bull terier, copd and hhypothyroidism Is patient at high risk?: No DAMARIS GARCIA MD Feb 06, 2020 09:52
[2020-02-06 11:00] VITALS: BP 102/63
--- NOTE | 2020-02-06 11:15 | CONS ---
DATE OF CONSULTATION: INFECTIOUS DISEASE CONSULTATION LOCATION: The patient is in room 412. REQUESTING PHYSICIAN: Joelle Tee MD REASON FOR CONSULTATION: Dog bite. HISTORY OF PRESENT ILLNESS: The patient is a 65-year-old female with history of COPD, actually saw Dr. Valadez on the for cough and received a Z-JESSE. Yesterday about 1:30 in the afternoon, she was sitting between two dogs. She has four dogs. One of the dog on her right side was a pit bull terrier, the other one on the left was pit bull and apparently they got into a fight. She tried to break them up and the pit bull terrier bit her on her right lower extremity. She did not wash the wound, but she presented to [facility] Emergency Room. She had a white count of 10.3, glucose was 149. She was afebrile. X-rays were obtained, showed soft tissue lacerations only. She was given a DTaP shot and given the dose of cefazolin. She was then taken to the operating room and underwent an I and D by Dr. Bravo. Postoperatively, she was placed on vancomycin and Zosyn. She was washed out with neomycin, bacitracin and polymyxin. There was no tendon or muscle damage. No active bleeding or evidence of foreign body. No gross signs of any purulent material and no cultures were obtained. Postoperatively, she was again placed on vancomycin and Zosyn. Currently, the patient is sitting upright in bed. This whole experience, she has not had any fevers, chills or sweats. She said the pain initially at the bite only lasted a few seconds, but then cleared. She has no headaches, no sinus issues, sore throat, cough little better. No nausea, vomiting, diarrhea. No dysuria, frequency or urgency. PAST MEDICAL HISTORY: Positive for COPD, hypothyroidism, emphysema. PAST SURGICAL HISTORY: Negative for any major surgeries. REVIEW OF SYSTEMS: Otherwise negative. ALLERGIES: No known drug allergies. SOCIAL HISTORY: She did smoke for quite some time, but she has quit. She is . Again, she has four dogs. She is not around any smokers. FAMILY HISTORY: Noncontributory. CURRENT MEDICATIONS: Again, she received cefazolin. She is on vancomycin, Zosyn, DuoNeb, Pulmicort. She did get a DPT shot, lactobacillus, Synthroid, Paxil. PHYSICAL EXAMINATION: VITAL SIGNS: She has been afebrile, temperature 98.2, pulse 65, respirations 22, blood pressure 112/66, satting 92% on room air. CONSTITUTIONAL: She is sitting upright in a chair. She looks well. She is in no acute distress. HEENT: Pupils equal and reactive. Normal conjunctivae. Oral cavity, pharynx is clear. NECK: Supple. Good range of motion. LUNGS: Clear. HEART: S1, S2. ABDOMEN: Soft, nontender, no guarding. EXTREMITIES: Without clubbing or cyanosis. A wound on her leg is sutured loosely. There is no active bleeding. There is no purulence. There is no gross surrounding erythema. There is some discoloration associated with bruising. SKIN: Otherwise, warm to touch without signs of rash. NEUROLOGIC: She is nonfocal. PSYCHIATRIC: Affect is appropriate. LABORATORY DATA: White count 10.3, hemoglobin 14.1, platelets of 343, neutrophils 72, lymphs are 18. Glucose of 149, creatinine of 0.8. Normal liver function study tests. RADIOLOGY: Reviewed in history of present illness. IMPRESSION: 1. Status post dog bite on 02/04. 2. Status post incision and drainage on 02/04. 3. Questionable chronic obstructive pulmonary disease exacerbation, started azithromycin on 02/04. 4. Hypothyroidism. 5. No history of skin infections or methicillin-resistant Staphylococcus aureus infection or exposure. RECOMMENDATIONS: Again, she did receive a tetanus on the , okay to discharge home on Augmentin for 7 days, complete Z-JESSE as directed. Wound care per General Surgery. If worsens, she needs to return. We will follow up with primary as well as General Surgery. This was discussed with nursing and surgery JEWELRY [employer]ARING [employer]KER. Thank you for allowing me to participate in the patient's care. If you have any questions, please do not hesitate to contact me. SANGITA PEARCE MD DR: NEYMAR/lela JOB#: [id number] / [id number]
--- NOTE | 2020-02-06 14:03 | PDOC3 ---
Discharge Summary Visit Information Date of Admission: Feb 05, 2020 Date of Discharge: Feb 06, 2020 Final Diagnosis Problems Medical Problems: (1) Dog bite of multiple sites of left lower extremity Status: Acute (2) Need for DTaP vaccination Status: Acute (3) Open wound of left lower leg due to dog bite Status: Acute Brief Hospital Course Allergies Allergies Coded Allergies Type Severity Reaction Last Updated Verified No Known Drug Allergies 09/09/16 No Vital Signs Vital Signs Date Time Temp Pulse Resp B/P (MAP) Pulse Ox O2 Delivery O2 Flow Rate FiO2 02/06/20 11:00 98.5 64 22 102/63 (76) 96 Room Air 98.5 02/05/20 17:13 10 Lab Results Laboratory Tests Test 02/05/20 14:31 White Blood Count 10.3 x10^3/uL (4.0-11.0) Red Blood Count 5.25 x10^6/uL (3.50-5.40) Hemoglobin 14.1 g/dL (12.0-15.5) Hematocrit 43.0 % (36.0-47.0) Mean Corpuscular Volume 82 fL (79-100) Mean Corpuscular Hemoglobin 27 pg (25-35) Mean Corpuscular Hemoglobin Concent 33 g/dL (31-37) Red Cell Distribution Width 14.3 % (11.5-14.5) Platelet Count 343 x10^3/uL (140-400) Neutrophils (%) (Auto) 72 % (31-73) Lymphocytes (%) (Auto) 18 % (24-48) Monocytes (%) (Auto) 8 % (0-9) Eosinophils (%) (Auto) 1 % (0-3) Basophils (%) (Auto) 1 % (0-3) Neutrophils # (Auto) 7.5 x10^3/uL (1.8-7.7) Lymphocytes # (Auto) 1.8 x10^3/uL (1.0-4.8) Monocytes # (Auto) 0.8 x10^3/uL (0.0-1.1) Eosinophils # (Auto) 0.1 x10^3/uL (0.0-0.7) Basophils # (Auto) 0.1 x10^3/uL (0.0-0.2) Sodium Level 139 mmol/L (136-145) Potassium Level 4.2 mmol/L (3.5-5.1) Chloride Level 103 mmol/L (98-107) Carbon Dioxide Level 24 mmol/L (21-32) Anion Gap 12 (6-14) Blood Urea Nitrogen 22 mg/dL (7-20) Creatinine 0.8 mg/dL (0.6-1.0) Estimated GFR (Cockcroft-Gault) 71.8 BUN/Creatinine Ratio 28 (6-20) Glucose Level 149 mg/dL (70-99) Calcium Level 9.7 mg/dL (8.5-10.1) Total Bilirubin 0.3 mg/dL (0.2-1.0) Aspartate Amino Transf (AST/SGOT) 20 U/L (15-37) Alanine Aminotransferase (ALT/SGPT) 27 U/L (14-59) Alkaline Phosphatase 106 U/L (46-116) Total Protein 7.7 g/dL (6.4-8.2) Albumin 3.5 g/dL (3.4-5.0) Albumin/Globulin Ratio 0.8 (1.0-1.7) Laboratory Tests Test 02/05/20 14:31 White Blood Count 10.3 x10^3/uL (4.0-11.0) Red Blood Count 5.25 x10^6/uL (3.50-5.40) Hemoglobin 14.1 g/dL (12.0-15.5) Hematocrit 43.0 % (36.0-47.0) Mean Corpuscular Volume 82 fL (79-100) Mean Corpuscular Hemoglobin 27 pg (25-35) Mean Corpuscular Hemoglobin Concent 33 g/dL (31-37) Red Cell Distribution Width 14.3 % (11.5-14.5) Platelet Count 343 x10^3/uL (140-400) Neutrophils (%) (Auto) 72 % (31-73) Lymphocytes (%) (Auto) 18 % (24-48) Monocytes (%) (Auto) 8 % (0-9) Eosinophils (%) (Auto) 1 % (0-3) Basophils (%) (Auto) 1 % (0-3) Neutrophils # (Auto) 7.5 x10^3/uL (1.8-7.7) Lymphocytes # (Auto) 1.8 x10^3/uL (1.0-4.8) Monocytes # (Auto) 0.8 x10^3/uL (0.0-1.1) Eosinophils # (Auto) 0.1 x10^3/uL (0.0-0.7) Basophils # (Auto) 0.1 x10^3/uL (0.0-0.2) Sodium Level 139 mmol/L (136-145) Potassium Level 4.2 mmol/L (3.5-5.1) Chloride Level 103 mmol/L (98-107) Carbon Dioxide Level 24 mmol/L (21-32) Anion Gap 12 (6-14) Blood Urea Nitrogen 22 mg/dL (7-20) Creatinine 0.8 mg/dL (0.6-1.0) Estimated GFR (Cockcroft-Gault) 71.8 BUN/Creatinine Ratio 28 (6-20) Glucose Level 149 mg/dL (70-99) Calcium Level 9.7 mg/dL (8.5-10.1) Total Bilirubin 0.3 mg/dL (0.2-1.0) Aspartate Amino Transf (AST/SGOT) 20 U/L (15-37) Alanine Aminotransferase (ALT/SGPT) 27 U/L (14-59) Alkaline Phosphatase 106 U/L (46-116) Total Protein 7.7 g/dL (6.4-8.2) Albumin 3.5 g/dL (3.4-5.0) Albumin/Globulin Ratio 0.8 (1.0-1.7) Brief Hospital Course Assessment/Plan Impression: 1. Laceration of the left leg from accidental dog bite, bull terrier. 2. Hypothyroidism. 3. COPD history. Plan: 1. Patient was taken to surgery for surgical debridement and primary closure with interrupted tessy and cleaning of the wound. 2. Patient was given Tdap. 3. ID was consulted recommended discharged home with Augmentin for 7 days. 4. Lortab for pain as needed. 5. Patient's dogs are all up-to-date including rabies vaccination. 6. Patient will be discharged home today follow-up with the PCP in 1 week surgery and 10 days Assessment Assessment Assessment/Plan Impression: 1. Laceration of the left leg from accidental dog bite, bull terrier. 2. Hypothyroidism. 3. COPD history. Plan: 1. Patient was taken to surgery for surgical debridement and primary closure with interrupted tessy and cleaning of the wound. 2. Patient was given Tdap. 3. ID was consulted recommended discharged home with Augmentin for 7 days. 4. Lortab for pain as needed. 5. Patient's dogs are all up-to-date including rabies vaccination. 6. Patient will be discharged home today follow-up with the PCP in 1 week surgery and 10 days Discharge Information Condition at Discharge: Stable Follow Up: Weeks Disposition/Orders: D/C to Home Scheduled Albuterol Sulfate (Albuterol Sulfate Conc Neb Soln) 2.5 Mg/0.5 Ml Vial.neb, 1 VIAL NEB Q4HRS for shortness of air, #120 Ref 5 (Reported) Entered as Reported by: LOLY DIAZ on 06/29/14941 Last Action: Converted on 02/05/202008 by DAMARIS GARCIA Levothyroxine Sodium (Levothyroxine Sodium) 100 Mcg Tablet, 1 TAB PO QM for thyroid, #30 Ref 5 (Reported) Entered as Reported by: JASMIN VALENTINE on 12/21/17428 Last Action: Continued on 02/05/202008 by DAMARIS GARCIA Levothyroxine Sodium (Levothyroxine Sodium) 100 Mcg Tablet, 1 TAB PO QTU for thyroid, #30 Ref 5 (Reported) Entered as Reported by: YOLI PEREZ on 02/05/201821 Last Action: HELD on 02/05/202008 by DAMARIS GARCIA Levothyroxine Sodium (Levothyroxine Sodium) 100 Mcg Tablet, 1 TAB PO QWE for thyroid, #30 Ref 5 (Reported) Entered as Reported by: YOLI PEREZ on 02/05/201821 Last Action: HELD on 02/05/202008 by DAMARIS GARCIA Levothyroxine Sodium (Levothyroxine Sodium) 112 Mcg Tablet, 1 TAB PO QTH for thyroid, #30 Ref 5 (Reported) Entered as Reported by: YOLI PEREZ on 02/05/201821 Last Action: HELD on 02/05/202008 by DAMARIS GARCIA Levothyroxine Sodium (Levothyroxine Sodium) 112 Mcg Tablet, 1 TAB PO QFR for thyroid, #30 Ref 5 (Reported) Entered as Reported by: YOLI PEREZ on 02/05/201821 Last Action: HELD on 02/05/202008 by DAMARIS GARCIA Levothyroxine Sodium (Levothyroxine Sodium) 112 Mcg Tablet, 1 TAB PO QSASU for thyroid, #30 Ref 5 (Reported) Entered as Reported by: YOLI PEREZ on 02/05/201821 Last Action: HELD on 02/05/202008 by DAMARIS GARCIA Mometasone/Formoterol (Dulera 200 Mcg/5 Mcg Inhaler) 13 Gm Hfa.aer.ad, 1 PUFF IH DAILY, #13 Ref 5 (Reported) Entered as Reported by: DALLAS MORENO on 09/09/16 0751 Last Action: Converted on 02/05/202008 by DAMARIS GARCIA Paroxetine Hcl (Paroxetine Hcl) 30 Mg Tablet, 1 TAB PO DAILY for depression, (Reported) Entered as Reported by: YOLI PEREZ on 02/05/201821 Last Action: Converted on 02/05/202008 by DAMARIS GARCIA Hemodynamically unstable?: Yes Respiratory Distress?: No Serious Diagnosis?: Yes Justification for admission: dogbite bull terier, copd and hhypothyroidism Is patient at high risk?: No DAMARIS GARCIA MD Feb 06, 2020 14:03
[2020-02-06] MEDS ORDERED: VANCOMYCIN 1 GM in IV NORMAL SALINE 250ML 250 ML IV SCH (16:00)
[2020-02-07] MEDS ORDERED: LEVOTHYROXINE 112 MCG TABLET PO SCH (06:00)
[2020-02-09] MEDS ORDERED: LEVOTHYROXINE 100 MCG TABLET PO SCH ×2 (06:00→16:00)
[2020-02-10] MEDS ORDERED: LEVOTHYROXINE 100 MCG TABLET PO SCH (06:00)
[2020-02-11] MEDS ORDERED: LEVOTHYROXINE 100 MCG TABLET PO SCH (06:00)
[2020-02-12] MEDS ORDERED: LEVOTHYROXINE 112 MCG TABLET PO SCH (06:00)
== END 2020-02-06 11:30 | disposition home or self-care (01) ==
LOC: ER 14:12 → INTOOBSV 15:20 → 4 NORTH 15:20 → ER 15:41
PROVIDERS: ADMIT Internal Medicine; ATTEND Internal Medicine
DX: S91.052A Open bite, left ankle, initial encounter (principal); J43.9 Emphysema, unspecified; E03.9 Hypothyroidism, unspecified; S81.812A Laceration without foreign body, left lower leg, initial encounter; W54.0XXA Bitten by dog, initial encounter; Y93.89 Activity, other specified; Y92.89 Other specified places as the place of occurrence of the external cause; Y99.8 Other external cause status; Z87.891 Personal history of nicotine dependence; Z23 Encounter for immunization
CPT/HCPCS: 11042; 36415; 73590; 73610; 80053; 85025; 90471; 90715; 94640; 96365; 96366; 96367; 96375; 99285; G0378; J0171; J0330; J0696; J1100; J2270; J2405; J2543; J2704; J2765; J3010; J3370; J3490; J7040; J7120; G0379; A4461; J7613; J7626

== ENCOUNTER 2022-04-10 11:32 | Inpatient (IN) | payer MEDICARE, OTHER ==
[~2022-04-10] VITALS: Ht 160 cm; Wt 54.0 kg
[2022-04-10] VITALS (9 sets, daily range): BP systolic 86–127; BP diastolic 61–86
[~2022-04-10 11:32] MED LIST changes: +DOXY-181 PO; -DOXY100C14 PO; +HYDR-2761 PO; +LEVO112T49 PO; +PARO30TA3 PO; +SERT-266 PO; -SERT25TA4 PO; +WARF2.5T2 PO; -WARF2.5T83 PO
[2022-04-10 11:57] LABS: BASO # 0.1 x10^3/uL (0.0-0.2); BASO % 1 % (0-3); EOS # 0.1 x10^3/uL (0.0-0.7); EOS % 1 % (0-3); HEMATOCRIT 43.3 % (36.0-47.0); HEMOGLOBIN 14.3 g/dL (12.0-15.5); LYMPH % 33 % (24-48); MEAN CORPUSCULAR HEMOGLOBIN 28 pg (25-35); MEAN CORPUSCULAR HGB CONC 33 g/dL (31-37); MEAN CORPUSCULAR VOLUME 85 fL (79-100); MONO % 8 % (0-9); NEUT # 6.8 x10^3/uL (1.8-7.7); NEUT % 57 % (31-73); PLATELET COUNT 343 x10^3/uL (140-400); RED BLOOD COUNT 5.11 x10^6/uL (3.50-5.40); RED CELL DISTRIBUTION WIDTH 15.4 % (11.5-14.5); WHITE BLOOD COUNT 12.1 x10^3/uL (4.0-11.0)
[2022-04-10] MEDS ORDERED: methylPREDNISolone SOD SUCC PF 40 MG/ML VIAL. IV ONE (12:00)
[2022-04-10] MEDS ORDERED: IPRATRPIUM/ALBUTEROL 0.5/2.5MG 3 ML NEBU. NEB ONE (12:00)
--- NOTE | 2022-04-10 12:07 | RAD ---
AP chest. HISTORY: Short of breath AP view was taken of the chest. There are changes of COPD and emphysema. There is no pneumothorax. He art is normal in size. There is a small hiatus hernia. There are no acute infiltrates. IMPRESSION: 1. COPD. 2. No acute infiltrates. Electronically signed by: Bob Campos MD (04/10/2022 12:05 PM) [facility]
[2022-04-10 12:08] LABS: CALCIUM 9.1 mg/dL (8.5-10.1); CREATININE 0.9 mg/dL (0.6-1.0); GFR 62.3; POTASSIUM 4.1 mmol/L (3.5-5.1)
[2022-04-10 12:39] LABS: INFLUENZA A PATIENT NEGATIVE (NEGATIVE)
[2022-04-10 12:43] LABS: INFLUENZA B PATIENT POSITIVE (NEGATIVE)
[2022-04-10] MEDS ORDERED: DEXAMETHASONE SOD PHOS 4 MG/ML VIAL IVP ONE (13:15)
--- NOTE | 2022-04-10 13:29 | PHYS DOC ---
Past Medical History Past Medical History: COPD, Hypothyroid, Other Additional Past Medical Histor: emphysema Past Surgical History: Other Additional Past Surgical Histo: Right hip surgery Smoking Status: Former Smoker Alcohol Use: None Drug Use: None General Adult EDM: Chief Complaint: SHORTNESS OF BREATH HPI: HPI: Patient is a 67 year old female who presents with shortness of breath. She is not able to provide much history on arrival other than nodding yes to having COPD. Also states that she had a grandson who was recently sick. Due to acuity of condition further history cannot be obtained at this time. Review of Systems: Review of Systems: Cannot perform due to acuity of condition Heart Score: C/O Chest Pain: No Risk Factors: Risk Factors: DM, Current or recent (<one month) smoker, HTN, HLP, family history of CAD, obesity. Risk Scores: Score 0 - 3: 2.5% MACE over next 6 weeks - Discharge Home Score 4 - 6: 20.3% MACE over next 6 weeks - Admit for Clinical Observation Score 7 - 10: 72.7% MACE over next 6 weeks - Early Invasive Strategies Current Medications: Current Medications Medications (Trade) Dose Ordered Sig/Rebeca Start Time Stop Time Status Last Admin Dose Admin Albuterol/ Ipratropium (Duoneb) 9 ml 1X ONCE 04/10/22 12:00 04/10/22 12:01 DC 04/10/22 12:06 9 ML Dexamethasone Sodium Phosphate (Decadron) 6 mg 1X ONCE 04/10/22 13:15 04/10/22 13:16 DC 04/10/22 13:19 6 MG Methylprednisolone Sodium Succinate (SOLU-Medrol 40MG VIAL) 40 mg 1X ONCE 04/10/22 12:00 04/10/22 12:01 DC 04/10/22 12:13 40 MG Allergies: Allergies: Allergies Coded Allergies Type Severity Reaction Last Updated Verified No Known Drug Allergies 09/09/16 No Physical Exam: PE: Constitutional: Well developed, well nourished, appears to be in respiratory distress HENT: Normocephalic, atraumatic, bilateral external ears normal, oropharynx moist, no oral exudates, nose normal. [] Eyes: PERRLA, EOMI, conjunctiva normal, no discharge. [] Neck: Normal range of motion, no tenderness, supple, no stridor. [] Cardiovascular:Heart rate regular rhythm, no murmur [] Lungs & Thorax: Diminished breath sounds bilateral, patient using accessory muscles of respiration Abdomen: Bowel sounds normal, soft, no tenderness, no masses, no pulsatile masses. [] Skin: Warm, dry, no erythema, no rash. [] Back: No tenderness, no CVA tenderness. [] Extremities: No tenderness, no cyanosis, no clubbing, ROM intact, no edema. [] Neurologic: Alert and oriented X 3, normal motor function, normal sensory function, no focal deficits noted. [] Psychologic: Affect normal, judgement normal, mood normal. [] Current Patient Data: Labs: Laboratory Tests Test 04/10/22 11:40 04/10/22 12:16 White Blood Count 12.1 x10^3/uL (4.0-11.0) H Red Blood Count 5.11 x10^6/uL (3.50-5.40) Hemoglobin 14.3 g/dL (12.0-15.5) Hematocrit 43.3 % (36.0-47.0) Mean Corpuscular Volume 85 fL (79-100) Mean Corpuscular Hemoglobin 28 pg (25-35) Mean Corpuscular Hemoglobin Concent 33 g/dL (31-37) Red Cell Distribution Width 15.4 % (11.5-14.5) H Platelet Count 343 x10^3/uL (140-400) Neutrophils (%) (Auto) 57 % (31-73) Lymphocytes (%) (Auto) 33 % (24-48) Monocytes (%) (Auto) 8 % (0-9) Eosinophils (%) (Auto) 1 % (0-3) Basophils (%) (Auto) 1 % (0-3) Neutrophils # (Auto) 6.8 x10^3/uL (1.8-7.7) Lymphocytes # (Auto) 4.0 x10^3/uL (1.0-4.8) Monocytes # (Auto) 1.0 x10^3/uL (0.0-1.1) Eosinophils # (Auto) 0.1 x10^3/uL (0.0-0.7) Basophils # (Auto) 0.1 x10^3/uL (0.0-0.2) Sodium Level 141 mmol/L (136-145) Potassium Level 4.1 mmol/L (3.5-5.1) Chloride Level 106 mmol/L (98-107) Carbon Dioxide Level 29 mmol/L (21-32) Anion Gap 6 (6-14) Blood Urea Nitrogen 36 mg/dL (7-20) H Creatinine 0.9 mg/dL (0.6-1.0) Estimated GFR (Cockcroft-Gault) 62.3 Glucose Level 199 mg/dL (70-99) H Calcium Level 9.1 mg/dL (8.5-10.1) Troponin I High Sensitivity 7 ng/L (4-50) RW-Zfx-A-Type Natriuretic Peptide 78 pg/mL (0-124) Influenza Type A Antigen Negative (NEGATIVE) Influenza Type B Antigen Positive (NEGATIVE) *A SARS-CoV-2 Antigen (Rapid) Positive (NEGATIVE) *A Laboratory Tests 04/10/22 11:40 Laboratory Tests 04/10/22 11:40 Vital Signs: Vital Signs Date Time Temp Pulse Resp B/P (MAP) Pulse Ox O2 Delivery O2 Flow Rate FiO2 04/10/22 12:38 98 115/80 (92) 98 BiPAP/CPAP 04/10/22 11:55 97.5 30 97.5 EKG: EKG: [] Radiology/Procedures: Radiology/Procedures: [] Course & Med Decision Making: Course & Med Decision Making Pertinent Labs and Imaging studies reviewed. (See chart for details) [] Dragon Disclaimer: Dragon Disclaimer: This electronic medical record was generated, in whole or in part, using a voice recognition dictation system. Departure Departure Impression: Primary Impression: Acute respiratory failure with hypoxia Additional Impressions: COVID-19 Influenza COPD exacerbation Disposition: ADMITTED INPATIENT Condition: IMPROVED Referrals: JONI GAR (PCP) MAURO ZAMUDIO MD April 10, 2022 13:29
[2022-04-10] MEDS ORDERED: TIOT18CA IH (15:52)
[2022-04-10] MEDS ORDERED: ALBU2.5V8 IH (15:52)
[2022-04-10] MEDS ORDERED: LEVO75TA5 PO (15:52)
[2022-04-10] MEDS ORDERED: OMEP40CA7 PO (15:54)
[2022-04-10] MEDS ORDERED: REMDESIVIR LOAD in IV NORMAL SALINE 250ML TV IV ONE (19:00)
[2022-04-10] MEDS: IPRATROPIUM/ALBUTEROL 20/100mcg/INH INHALER. INH SCH (20:24)
[2022-04-10] MEDS: OSELTAMIVIR 30 MG CAPSULE PO SCH (20:25)
[2022-04-10] MEDS: ENOXAPARIN 40 MG/0.4 ML SYRINGE. SQ SCH (20:25)
[2022-04-11] VITALS (24 sets, daily range): BP systolic 107–160; BP diastolic 68–96
[2022-04-11 05:03] LABS: HEMATOCRIT 39.3 % (36.0-47.0); HEMOGLOBIN 13.2 g/dL (12.0-15.5); RED BLOOD COUNT 4.68 x10^6/uL (3.50-5.40); RED CELL DISTRIBUTION WIDTH 15.1 % (11.5-14.5)
[2022-04-11 05:33] LABS: ALBUMIN/GLOBULIN RATIO 0.8 (1.0-1.7); CALCIUM 8.8 mg/dL (8.5-10.1); CREATININE 0.9 mg/dL (0.6-1.0); GFR 62.3; POTASSIUM 4.4 mmol/L (3.5-5.1); TOTAL BILIRUBIN 0.4 mg/dL (0.2-1.0); TOTAL PROTEIN 6.7 g/dL (6.4-8.2)
[2022-04-11] MEDS ORDERED: LEVOTHYROXINE 75 MCG TABLET PO SCH (06:00)
[2022-04-11] MEDS ORDERED: PANTOPRAZOLE 40 MG TABLET.DR. PO SCH (07:30)
[2022-04-11] MEDS: OSELTAMIVIR 30 MG CAPSULE PO SCH ×2 (08:35→20:24)
[2022-04-11 08:36] LABS: BASE EXCESS ABG 1 mmol/L (-3-3); HCO3 ABG 25 mmol/L (21-28); PCO2 ABG 39 mmHg (35-46); PO2 ABG 151 mmHg (65-108); SAT O2 ABG 98 % (92-99)
[2022-04-11 08:37] LABS: FIO2 ABG 35
[2022-04-11] MEDS: methylPREDNISolone SOD SUCC PF 40 MG/ML VIAL. IV SCH ×3 (08:45→21:31)
--- NOTE | 2022-04-11 08:48 | PDOC ---
PULMONARY PROGRESS NOTES DATE: 04/11/22 TIME: 08:48 Vitals Vital Signs Date Time Temp Pulse Resp B/P (MAP) Pulse Ox O2 Delivery O2 Flow Rate FiO2 04/11/22 08:34 Nasal Cannula 2.0 04/11/22 07:46 99 04/11/22 06:00 71 16 127/88 (101) 04/11/22 04:00 98.2 98.2 General: Alert, No acute distress Lungs: Clear Cardiovascular: S1, S2 Abdomen: Soft Extremities: No Edema Labs Laboratory Tests Test 04/10/22 11:40 04/10/22 12:16 04/11/22 04:50 04/11/22 08:00 White Blood Count 12.1 x10^3/uL (4.0-11.0) 10.0 x10^3/uL (4.0-11.0) Red Blood Count 5.11 x10^6/uL (3.50-5.40) 4.68 x10^6/uL (3.50-5.40) Hemoglobin 14.3 g/dL (12.0-15.5) 13.2 g/dL (12.0-15.5) Hematocrit 43.3 % (36.0-47.0) 39.3 % (36.0-47.0) Mean Corpuscular Volume 85 fL (79-100) 84 fL (79-100) Mean Corpuscular Hemoglobin 28 pg (25-35) 28 pg (25-35) Mean Corpuscular Hemoglobin Concent 33 g/dL (31-37) 34 g/dL (31-37) Red Cell Distribution Width 15.4 % (11.5-14.5) 15.1 % (11.5-14.5) Platelet Count 343 x10^3/uL (140-400) 286 x10^3/uL (140-400) Neutrophils (%) (Auto) 57 % (31-73) Lymphocytes (%) (Auto) 33 % (24-48) Monocytes (%) (Auto) 8 % (0-9) Eosinophils (%) (Auto) 1 % (0-3) Basophils (%) (Auto) 1 % (0-3) Neutrophils # (Auto) 6.8 x10^3/uL (1.8-7.7) Lymphocytes # (Auto) 4.0 x10^3/uL (1.0-4.8) Monocytes # (Auto) 1.0 x10^3/uL (0.0-1.1) Eosinophils # (Auto) 0.1 x10^3/uL (0.0-0.7) Basophils # (Auto) 0.1 x10^3/uL (0.0-0.2) Sodium Level 141 mmol/L (136-145) 146 mmol/L (136-145) Potassium Level 4.1 mmol/L (3.5-5.1) 4.4 mmol/L (3.5-5.1) Chloride Level 106 mmol/L (98-107) 109 mmol/L (98-107) Carbon Dioxide Level 29 mmol/L (21-32) 26 mmol/L (21-32) Anion Gap 6 (6-14) 11 (6-14) Blood Urea Nitrogen 36 mg/dL (7-20) 30 mg/dL (7-20) Creatinine 0.9 mg/dL (0.6-1.0) 0.9 mg/dL (0.6-1.0) Estimated GFR (Cockcroft-Gault) 62.3 62.3 Glucose Level 199 mg/dL (70-99) 79 mg/dL (70-99) Calcium Level 9.1 mg/dL (8.5-10.1) 8.8 mg/dL (8.5-10.1) Troponin I High Sensitivity 7 ng/L (4-50) OZ-Tvn-V-Type Natriuretic Peptide 78 pg/mL (0-124) Influenza Type A Antigen Negative (NEGATIVE) Influenza Type B Antigen Positive (NEGATIVE) SARS-CoV-2 Antigen (Rapid) Positive (NEGATIVE) D-Dimer (Cristy) 0.82 ug/mlFEU (0.00-0.50) BUN/Creatinine Ratio 33 (6-20) Total Bilirubin 0.4 mg/dL (0.2-1.0) Aspartate Amino Transf (AST/SGOT) 26 U/L (15-37) Alanine Aminotransferase (ALT/SGPT) 39 U/L (14-59) Alkaline Phosphatase 82 U/L (46-116) Total Protein 6.7 g/dL (6.4-8.2) Albumin 3.0 g/dL (3.4-5.0) Albumin/Globulin Ratio 0.8 (1.0-1.7) O2 Saturation 98 % (92-99) Arterial Blood pH 7.42 (7.35-7.45) Arterial Blood pCO2 at Patient Temp 39 mmHg (35-46) Arterial Blood pO2 at Patient Temp 151 mmHg (65-108) Arterial Blood HCO3 25 mmol/L (21-28) Arterial Blood Base Excess 1 mmol/L (-3-3) FiO2 35 Laboratory Tests Test 04/10/22 11:40 04/10/22 12:16 04/11/22 04:50 04/11/22 08:00 White Blood Count 12.1 x10^3/uL (4.0-11.0) 10.0 x10^3/uL (4.0-11.0) Red Blood Count 5.11 x10^6/uL (3.50-5.40) 4.68 x10^6/uL (3.50-5.40) Hemoglobin 14.3 g/dL (12.0-15.5) 13.2 g/dL (12.0-15.5) Hematocrit 43.3 % (36.0-47.0) 39.3 % (36.0-47.0) Mean Corpuscular Volume 85 fL (79-100) 84 fL (79-100) Mean Corpuscular Hemoglobin 28 pg (25-35) 28 pg (25-35) Mean Corpuscular Hemoglobin Concent 33 g/dL (31-37) 34 g/dL (31-37) Red Cell Distribution Width 15.4 % (11.5-14.5) 15.1 % (11.5-14.5) Platelet Count 343 x10^3/uL (140-400) 286 x10^3/uL (140-400) Neutrophils (%) (Auto) 57 % (31-73) Lymphocytes (%) (Auto) 33 % (24-48) Monocytes (%) (Auto) 8 % (0-9) Eosinophils (%) (Auto) 1 % (0-3) Basophils (%) (Auto) 1 % (0-3) Neutrophils # (Auto) 6.8 x10^3/uL (1.8-7.7) Lymphocytes # (Auto) 4.0 x10^3/uL (1.0-4.8) Monocytes # (Auto) 1.0 x10^3/uL (0.0-1.1) Eosinophils # (Auto) 0.1 x10^3/uL (0.0-0.7) Basophils # (Auto) 0.1 x10^3/uL (0.0-0.2) Sodium Level 141 mmol/L (136-145) 146 mmol/L (136-145) Potassium Level 4.1 mmol/L (3.5-5.1) 4.4 mmol/L (3.5-5.1) Chloride Level 106 mmol/L (98-107) 109 mmol/L (98-107) Carbon Dioxide Level 29 mmol/L (21-32) 26 mmol/L (21-32) Anion Gap 6 (6-14) 11 (6-14) Blood Urea Nitrogen 36 mg/dL (7-20) 30 mg/dL (7-20) Creatinine 0.9 mg/dL (0.6-1.0) 0.9 mg/dL (0.6-1.0) Estimated GFR (Cockcroft-Gault) 62.3 62.3 Glucose Level 199 mg/dL (70-99) 79 mg/dL (70-99) Calcium Level 9.1 mg/dL (8.5-10.1) 8.8 mg/dL (8.5-10.1) Troponin I High Sensitivity 7 ng/L (4-50) ZJ-Vdt-A-Type Natriuretic Peptide 78 pg/mL (0-124) Influenza Type A Antigen Negative (NEGATIVE) Influenza Type B Antigen Positive (NEGATIVE) SARS-CoV-2 Antigen (Rapid) Positive (NEGATIVE) D-Dimer (Cristy) 0.82 ug/mlFEU (0.00-0.50) BUN/Creatinine Ratio 33 (6-20) Total Bilirubin 0.4 mg/dL (0.2-1.0) Aspartate Amino Transf (AST/SGOT) 26 U/L (15-37) Alanine Aminotransferase (ALT/SGPT) 39 U/L (14-59) Alkaline Phosphatase 82 U/L (46-116) Total Protein 6.7 g/dL (6.4-8.2) Albumin 3.0 g/dL (3.4-5.0) Albumin/Globulin Ratio 0.8 (1.0-1.7) O2 Saturation 98 % (92-99) Arterial Blood pH 7.42 (7.35-7.45) Arterial Blood pCO2 at Patient Temp 39 mmHg (35-46) Arterial Blood pO2 at Patient Temp 151 mmHg (65-108) Arterial Blood HCO3 25 mmol/L (21-28) Arterial Blood Base Excess 1 mmol/L (-3-3) FiO2 35 Medications Active Scripts Medications Dose Route/Sig Max Daily Dose Days Date Category Omeprazole 40 Mg Capsule.dr 1 Cap PO DAILY 04/10/22 Reported Proair Hfa Inhaler (Albuterol Sulfate) 8.5 Gm Hfa.aer.ad 2 Puff IH PRN Q4-6HRS PRN 21 04/10/22 Reported Spiriva (Tiotropium Placedo) 18 Mcg Cap.w.dev 1 Cap IH DAILY 04/10/22 Reported Levothyroxine Sodium 75 Mcg Tablet 1 Tab PO DAILY 04/10/22 Reported Paroxetine Hcl 30 Mg Tablet 1 Tab PO DAILY 02/05/20 Reported Impression . Full note dictated Acute exacerbation of COPD Acute hypoxemic respiratory failure COVID-19 rapid test positive, influenza positive Continue current support JESS LAL MD April 11, 2022 08:48
[2022-04-11] MEDS ORDERED: PARoxetine 10 MG TABLET PO SCH (09:00)
--- NOTE | 2022-04-11 09:06 | EKG ---
[facility] [address] [place] [address] Test Date: 2022-04-10 Test Time: 11:46:52 Pat Name: SERVANDO PATEL Department: Room: 104 1 Gender: F Principal Engineer: : [id number] Requested By: MAURO ZAMUDIO Order Number: [id number] Reading MD: Jon Phelan MD Measurements Intervals [place] Rate: 107 P: 75 WA: 130 QRS: 57 QRSD: 84 T: 91 QT: 340 QTc: 459 Interpretive Statements SINUS TACHYCARDIA NON-SPECIFIC ST/T CHANGES Electronically Signed On 04-11-2022 10:58:13 CDT by Jon Phelan MD
[2022-04-11] MEDS: IPRATROPIUM/ALBUTEROL 20/100mcg/INH INHALER. INH SCH ×4 (09:22→20:22)
--- NOTE | 2022-04-11 09:24 | HP ---
DATE OF SERVICE: 04/11/2022 ADMIT DATE: 04/10/2022 HISTORY OF PRESENT ILLNESS: The patient is a 67-year-old female patient who presented to the Emergency Room with a complaint of worsening shortness of breath. She denied any chest pain. She stated that she has a cough, but with scanty whitish sputum. She denied any chills, rigors or fever. She was extensively evaluated in the Emergency Room and has had lab work and imaging studies. Her lab work showed that her white cell count was slightly elevated at 12,000, her chemistry was mostly unremarkable. Her influenza A antigen were negative; however, influenza B and coronavirus by rapid antigen testing was positive. The patient had a chest x-ray, which showed changes of COPD and emphysema. There is no pneumothorax. The heart size is normal. There is a small hiatal hernia. There are no acute infiltrate and the patient was admitted with acute hypoxic respiratory failure, COPD exacerbation. She was started on IV steroids and did receive methylprednisolone as well as dexamethasone together with remdesivir and was admitted to the ICU, continued on BiPAP machine, continued on steroids, remdesivir as well as Lovenox and DuoNeb, Combivent Respimat inhaler. PAST MEDICAL HISTORY: Significant for chronic obstructive pulmonary disease, hypothyroidism. PAST SURGICAL HISTORY: Significant for right hip hemiarthroplasty. ALLERGIES: She has no known drug allergies. FAMILY HISTORY: Positive for COPD and hypertension. SOCIAL HISTORY: She lives with her . She quit smoking 2 years ago. She smoked for almost 30 years, smoked about 2 packs a day. She does not drink alcohol or use recreational drugs. MEDICATIONS: She is currently on the following medications: She is on levothyroxine 75 mcg once a day, omeprazole 40 mg once a day, paroxetine 30 mg once a day, albuterol sulfate 2 puffs every 4-6 hours and Spiriva HandiHalers one inhalation once a day. REVIEW OF SYSTEMS: As per history of present illness. PHYSICAL EXAMINATION: GENERAL: On arrival to the Emergency Room, she was clearly tachypneic and tachycardic, but there was no pallor, jaundice, cyanosis, or thyromegaly. No jugular venous distention. No lower limb edema. VITAL SIGNS: Her heart rate on arrival was 105, blood pressure was 164/89, temperature was 97.5, respiratory rate 30 and oxygen saturation was 99% on BiPAP machine with an FiO2 of 30%. HEAD, EYES, EARS, NOSE, AND THROAT: Normocephalic, atraumatic. NECK: Supple. HEART: Showed normal first and second heart sounds. No gallop or murmur. CHEST: Shows central trachea, equally reduced expansion, reduced air entry, vesicular breath sounds with bilateral scattered rhonchi. ABDOMEN: Slightly distended, soft, nontender. NEUROLOGIC: She was grossly intact. LABORATORY DATA: On arrival showed a white cell count 12.1, hemoglobin 14, hematocrit 43, MCV 85 and platelet count 343,000 with normal manual differential. Her chemistry showed a serum sodium 141, potassium 4.1, chloride 106, bicarbonate 29, anion gap of 6, BUN 36, creatinine 0.9. Estimated GFR was 62 mL per minute. Her glucose 199, calcium was 9.1. Her influenza A antigen were negative. Influenza B and coronavirus by rapid antigen testing were positive. ASSESSMENT AND PLAN: 1. In summary, this is a 67-year-old female patient who was admitted with acute hypoxic respiratory failure. 2. Chronic obstructive pulmonary disease exacerbation. The patient was positive for influenza B and coronavirus by rapid antigen testing. The patient was vaccinated and received 2 Moderna vaccine. She has not received her booster. She was also vaccinated for her flu and was actually had an infection in June last year. She has COVID-19 infection. I am not sure what to make of these positive values. We did start her already on remdesivir, steroids as well as Lovenox and Tamiflu. We will continue with BiPAP machine for now. We will check her blood gases, repeat all her lab works and I have consulted the kelp or seagrass gatherer. MARGA LI: Shelley TID: [id number]
--- NOTE | 2022-04-11 09:24 | PN ---
DATE: 04/11/2022 SUBJECTIVE: The patient was admitted yesterday with worsening shortness of breath and was diagnosed with acute hypoxic respiratory failure and COPD exacerbation. She was found to be positive for the influenza B as well as COVID-19 by rapid antigen testing. We did start her on IV Solu-Medrol, remdesivir and Lovenox. We reconciled all her medications. PHYSICAL EXAMINATION: GENERAL: When I saw her this morning, she was resting, slightly propped up in bed, on BiPAP machine, maintaining her oxygen saturation at 99%. VITAL SIGNS: Her heart rate was 71, blood pressure was 127/88, temperature was 98, respiratory rate was 16 and oxygen saturation was 99% on 2 liters of oxygen. HEAD, EYES, EARS, NOSE AND THROAT: Normocephalic, atraumatic. NECK: Supple. HEART: Showed normal first and second heart sounds. No gallop or murmur. CHEST: Shows central trachea, equally reduced expansion, reduced air entry, vesicular breath sounds with very few scattered rhonchi. I could not appreciate any crepitation. ABDOMEN: Slightly distended, soft, nontender. NEUROLOGIC: She was grossly intact. LABORATORY DATA: This morning showed a white cell count of 10,000, hemoglobin 13, hematocrit 39, MCV 84 and platelet count 286,000. Serum sodium was 146, potassium 4.4, chloride 109, bicarbonate 26, anion gap of 11, BUN 30, creatinine 0.9, estimated GFR was 62 mL per minute. Her glucose was 79, calcium was 8.8. Total bilirubin, AST, ALT, alkaline phosphatase were normal. Total protein 6.7, albumin 3. ASSESSMENT: 1. Acute hypoxic respiratory failure. 2. Chronic obstructive pulmonary disease. 3. Hypothyroidism. 4. Gastroesophageal reflux disease. 5. The patient was positive for influenza B as well as COVID-19 by rapid antigen testing. PLAN: Continue with remdesivir. Continue with methylprednisolone. Continue with Protonix, levothyroxine as well as Tamiflu together with Lovenox and Combivent Respimat. MARAH DR: Shelley TID: [id number]
--- NOTE | 2022-04-11 11:56 | CONS ---
DATE OF CONSULTATION: 04/11/2022 ATTENDING PHYSICIAN: Sukh Batista MD. CONSULTING PHYSICIAN: Tiffanie Causey MD. REASON FOR CONSULTATION: The patient is seen in pulmonary consultation at the request of Dr. Batista for acute on chronic hypoxemic respiratory failure. Initial arterial blood gas revealed pH of 7.42, PaCO2 of 39, pO2 of 151. HISTORY OF PRESENT ILLNESS: The patient is a 67-year-old quit tobacco in 2016, was prescribed oxygen at bedtime some time ago, but does not normally wear oxygen. She is unable to afford her metered-dose inhalers. She presented to the Emergency Room at [facility] with progressive dyspnea, tachypnea, unable to complete full sentences. She initially was evaluated, had a white count of 12,000. She tested positive for influenza B and rapid COVID antigen testing. I personally reviewed the x-ray. There are some changes compatible with emphysema. There is a pulmonary calcified nodule in the right lower lobe and there maybe some infiltrates and small effusions bilaterally. The patient was admitted into the intensive care unit. She was in severe distress, placed on BiPAP. She is currently off of BiPAP, doing better. She is able to complete full sentences at this time. She was started on remdesivir, Lovenox, DuoNebs, and steroids. I was asked to see her in consultation. She reports up to date on flu vaccination. She had 2 COVID vaccines and has not been boosted. No known exposures to influenza or COVID. She is currently not smoking. Denies fever, chills, night sweats. No hemoptysis. PAST MEDICAL HISTORY: Tobacco dependence, in remission, quit in 2016. Severe COPD, chronic respiratory failure. Apparently, the patient was on oxygen at bedtime, history of hypothyroidism. PAST SURGICAL HISTORY: Right hip hemiarthroplasty. ALLERGIES: No known drug allergies. FAMILY HISTORY: Remarkable for COPD and hypertension. SOCIAL HISTORY: She lives at home with her . She has a granddaughter that lives with her quit tobacco in 2016, has a 60 year pack history of tobacco use. Denies any alcohol intake. CURRENT MEDICATIONS: List from home included levothyroxine, omeprazole, paroxetine, albuterol, Spiriva. She is unable to afford. REVIEW OF SYSTEMS: As indicated above, otherwise other systems were reviewed and negative. CURRENT MEDICATIONS: List was reviewed. Once again, the patient is receiving remdesivir, dexamethasone, Lovenox, nebulized treatments, Tamiflu, and Paxil. PHYSICAL EXAMINATION: GENERAL: The patient appeared to be older than stated age. VITAL SIGNS: Stable. O2 saturation was greater than 92%. HEENT: Eyes: The sclerae were nonicteric. NECK: Jugular venous distention was not elevated. No lymphadenopathy. CHEST: Full expansion. LUNGS: Crackles in the bases. No wheezes. CARDIOVASCULAR: Regular rate and rhythm with S1, S2, no S3. ABDOMEN: Soft. EXTREMITIES: Nontender. EXTREMITIES: No clubbing, cyanosis or edema. NEUROLOGIC: The patient was awake, alert, following commands. A detailed neuro exam was not performed. SKIN: Show no unusual skin lesions. LABORATORY DATA: Reviewed. White count was initially elevated, hemoglobin and hematocrit noted. D-dimer was elevated. Electrolytes were noted. BUN was elevated. Creatinine was normal. Albumin was low. IMPRESSION: 1. Acute on chronic hypoxemic respiratory failure, multifactorial. 2. Acute exacerbation of chronic obstructive pulmonary disease related to influenza B and COVID-19 viral pneumonia. 3. COVID-19 viral pneumonia. 4. Suspect severe chronic obstructive pulmonary disease of the emphysematous type. 5. Hypothyroidism. 6. Anxiety disorder. 7. Tobacco dependence, in remission. PLAN: 1. Continue current support with oxygen supplementation. 2. Remdesivir. 3. Steroids. 4. Obtain PCR COVID-19 testing. 5. Nebulized treatments. 6. DVT prophylaxis. DISCUSSION: Prior to discharge, the patient will undergo a 6-minute walk, I suspect she may require oxygen supplementation. In addition, as an outpatient, she needs a low dose screening scan for early cancer. I do appreciate the privilege in sharing in patient's care. RICK LI: Samantha TID: [id number] CC: JADE FELIPE DO
[2022-04-11] MEDS ORDERED: REMDESIVIR 100mg in NORMAL SALINE 250ML X 4 DAYS IV SCH (19:00)
[2022-04-11] MEDS: ENOXAPARIN 40 MG/0.4 ML SYRINGE. SQ SCH (20:22)
[2022-04-11] MEDS ORDERED: traZODone 50 MG TABLET. PO PRN (21:30)
== END 2022-04-12 | disposition home or self-care (01) | DRG 177 ==
LOC: ER 11:32 → 1 WEST ICU 13:19
PROVIDERS: ADMIT Internal Medicine; ATTEND Internal Medicine
PROC: 5A09357 Assistance with Respiratory Ventilation, Less than 24 Consecutive Hours, Continuous Positive Airway Pressure (ICD-10-PCS; principal; 2022-04-10)
PROC: XW033E5 Introduction of Remdesivir Anti-infective into Peripheral Vein, Percutaneous Approach, New Technology Group 5 (ICD-10-PCS; 2022-04-11)
DX: U07.1 COVID-19 (principal); J10.08 Influenza due to other identified influenza virus with other specified pneumonia; J12.82 Pneumonia due to coronavirus disease 2019; J96.21 Acute and chronic respiratory failure with hypoxia; E03.9 Hypothyroidism, unspecified; J20.9 Acute bronchitis, unspecified; F17.201 Nicotine dependence, unspecified, in remission; F41.9 Anxiety disorder, unspecified; Z82.49 Family history of ischemic heart disease and other diseases of the circulatory system; J43.9 Emphysema, unspecified; K21.9 Gastro-esophageal reflux disease without esophagitis; K44.9 Diaphragmatic hernia without obstruction or gangrene; Z82.5 Family history of asthma and other chronic lower respiratory diseases
CPT/HCPCS: 36415; 71045; 80048; 80053; 82805; 83880; 84484; 85025; 85027; 85379; 87428; 93005; 94640; 94660; 94760; 96374; 96375; J1100; J1650; J2920; J7050; U0003; 99285-25; G0378; J7030